=== PATIENT | female | born 1985 | race Caucasian/White ===

== ENCOUNTER 2017-06-01 15:51 | Emergency (ER) | payer OTHER ==
[~2017-06-01] VITALS: Ht 157.5 cm; Wt 65.6 kg
[~2017-06-01 15:51] MED LIST: BUPR100T8 PO; BUPR200T2 PO; CHOL1000 PO; CLON1TAB3 PO; FLUO20CA35 PO; OXYC7.5T78 PO; PANT40TA PO; TOPI50TA24 PO; VERA240T20 PO
[2017-06-01 15:57] VITALS: TEMP 36.8; Ht 157.5 cm; Wt 65.6 kg
[2017-06-01] MEDS ORDERED: SODIUM CHLORIDE 0.9% 1000ML 1,000 ML IV STA (16:03)
[2017-06-01] MEDS ORDERED: SODIUM CHLORIDE 0.9% 500ML 500 ML IV STA (16:03)
[2017-06-01] MEDS ORDERED: OPTIRAY 320 IV PRN (16:15)
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
[2017-06-01] MEDS ORDERED: ONDANSETRON INJ 2 MG/ML 2 ML VIAL IV STA (16:41)
[2017-06-01] MEDS: MoRPHine SULFATE 4 MG/ML 1 ML CARP\\VIAL IV PRN ×2 (16:45→17:02)
[2017-06-01 17:07] LABS: HEMATOCRIT 38.6 % (37-47); MEAN CELL VOLUME 88.7 fL (80-100); MEAN PLATELET VOLUME 9.3 fL (7.4-10.4); PLATELET COUNT 219 K/uL (130-400); RED BLOOD COUNT 4.35 M/uL (4.2-5.4); WHITE BLOOD COUNT 7.75 K/uL (4.8-10.8)
[2017-06-01] MEDS ORDERED: VORT1TAB3 PO (17:16)
[2017-06-01 17:50] LABS: BLOOD UREA NITROGEN 13 mg/dl (7-18); BUN/CREATININE RATIO 11.6 (10-20); CALCIUM 8.9 mg/dl (8.5-10.1); CARBON DIOXIDE 24 mmol/L (21-32); CHLORIDE 112 mmol/L (98-107); GLUCOSE 74 mg/dl (70-99); SODIUM 140 mmol/L (136-145)
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
[2017-06-01 19:46] VITALS: BP 127/88; PULSE 74; O2SAT 97
== END 2017-06-01 19:48 | disposition home or self-care (01) ==
LOC: EDBD 15:51 → C.EDB 15:52
DX: R10.9 Unspecified abdominal pain (principal); S40.012A Contusion of left shoulder, initial encounter; S16.1XXA Strain of muscle, fascia and tendon at neck level, initial encounter; V49.40XA Driver injured in collision with unspecified motor vehicles in traffic accident, initial encounter; F31.5 Bipolar disorder, current episode depressed, severe, with psychotic features; F42.9 Obsessive-compulsive disorder, unspecified; F43.10 Post-traumatic stress disorder, unspecified; Z83.3 Family history of diabetes mellitus; Z82.49 Family history of ischemic heart disease and other diseases of the circulatory system

== ENCOUNTER → 2017-06-24 | Outpatient (CLI) | payer OTHER ==
[~2017-06-24] MED LIST changes: -BUPR100T8 PO; -BUPR200T2 PO; -CHOL1000 PO; +CIPR-255 PO; +KETO30IN5 INJ; +ONDA4TAB10 SL; -OXYC7.5T78 PO; +PHEN-876 PO; +PRAZ1CAP10 PO; +VORT1TAB3 PO
== END | disposition home or self-care (01) ==
LOC: C.PAPS 16:57
PROVIDERS: ATTEND Physician Assistant
DX: Z01.419 Encounter for gynecological examination (general) (routine) without abnormal findings (principal)

== ENCOUNTER → 2017-08-07 | Outpatient (CLI) | payer OTHER | END | disposition home or self-care (01) | LOC: C.LABPVFM 12:44 | PROVIDERS: ATTEND Nurse Practitioner Family | DX: N39.0 Urinary tract infection, site not specified (principal) ==

== ENCOUNTER 2017-08-08 20:09 | Emergency (ER) | payer OTHER ==
[~2017-08-08] VITALS: Ht 154.9 cm; Wt 64.2 kg
[~2017-08-08 20:09] MED LIST changes: -CIPR-255 PO; -KETO30IN5 INJ; -ONDA4TAB10 SL; -PHEN-876 PO; -PRAZ1CAP10 PO
[2017-08-08 20:14] VITALS: TEMP 37; Ht 154.9 cm; Wt 64.2 kg
[2017-08-08] MEDS ORDERED: PRAZ1CAP10 PO (20:28)
[2017-08-08] MEDS ORDERED: PHEN-876 PO (20:28)
[2017-08-08] MEDS ORDERED: KETO30IN5 INJ (20:28)
[2017-08-08] MEDS ORDERED: CIPR-255 PO (20:28)
[2017-08-08] MEDS ORDERED: ONDANSETRON INJ 2 MG/ML 2 ML VIAL IV STA (20:55)
[2017-08-08] MEDS ORDERED: KETOROLAC TROMETHAMINE 30 MG/ML VIAL IV STA (20:55)
[2017-08-08] MEDS ORDERED: SODIUM CHLORIDE 0.9% 1000ML 1,000 ML IV STA (20:55)
[2017-08-08 21:18] LABS: BASO % 0.3 %; BASO ABS # 0.02 K/uL (0-0.2); COMPLETE YES; EOS % 0.5 %; HEMATOCRIT 39.6 % (37-47); LYMPH % 19.5 %; LYMPH ABS # 1.51 K/uL (1.2-3.4); MEAN CORPUSCULAR HEMOGLOBIN 30.1 pg (25-34); MEAN CORPUSCULAR HGB CONC 33.8 g/dl (32-36); MEAN PLATELET VOLUME 9.2 fL (7.4-10.4); MONO % 6.4 %; NEUT % 73.3 %; PLATELET COUNT 275 K/uL (130-400); RED BLOOD COUNT 4.45 M/uL (4.2-5.4); WHITE BLOOD COUNT 7.76 K/uL (4.8-10.8)
[2017-08-08 21:35] LABS: CREATININE 1.1 mg/dl (0.60-1.20); POTASSIUM 3.2 mmol/L (3.5-5.1)
[2017-08-08 21:38] LABS: ALB/GLOB RATIO 1.3 (0.9-2)
[2017-08-08 21:55] LABS: MANUAL MICROSCOPIC REQUIRED? YES; REVIEW REQ? NO; SULFASALICYLIC ACID NEG (NEG); URINE APPEARANCE CLEAR (CLEAR); URINE COLOR ORANGE; URINE SPECIFIC GRAVITY 1.015 (1.000-1.030)
--- NOTE | 2017-08-08 21:56 | DIAGNOSTIC IMAGING REPORT ---
CT SCAN OF THE ABDOMEN AND PELVIS WITHOUT CONTRAST CLINICAL HISTORY: Bilateral flank pain. History of kidney stones. COMPARISON STUDY: 06/01/2017 TECHNIQUE: CT scan of the abdomen and pelvis was performed from the lung bases to the proximal femurs. Images are reviewed in the axial, sagittal, and coronal planes. IV contrast was not administered for this examination. A dose lowering technique was utilized adhering to the principles of ALARA. CT DOSE: 488.00 mGy.cm FINDINGS: Lower chest: There are minor basilar atelectatic changes. Liver: The unenhanced liver is normal in size, contour, and attenuation. There is no intrahepatic biliary ductal dilatation. Gallbladder: Unremarkable. Spleen: Normal in size and attenuation. Pancreas: Unremarkable. Adrenal glands: Unremarkable. Kidneys: There are multiple bilateral nonobstructing renal calculi. There is no significant hydronephrosis. No ureteral or bladder calculi are visualized. Multiple pelvic basin calcifications, likely represent phleboliths given the lack of or proximal ureteral dilatation. Bowel: There are no transition zones indicate bowel obstruction. There is mild fecal retention. Correlation with constipation is recommended. There is no acute diverticulitis. There are no findings to indicate acute appendicitis. Peritoneum: There is trace free pelvic fluid likely physiologic. No free intraperitoneal air is visualized. Vasculature: The abdominal aorta is normal in course and caliber. Adenopathy: None. Pelvic viscera: There is an indwelling IUD. Skeletal structures: No destructive osseous lesions are seen. IMPRESSION: 1. Bilateral nephrolithiasis. No hydronephrosis. No ureteral calculi identified. 2. No evidence of bowel obstruction. No evidence of free air 3. No evidence of acute diverticulitis. No evidence of acute appendicitis. 4. Fecal retention. Correlate with symptoms of constipation. Electronically signed by: Maninder Muhammad M.D. 08/08/2017 9:55 PM Dictated Date/Time: 08/08/2017 9:50 PM
[2017-08-08 21:59] LABS: URINE BACTERIA NEG (NEG); URINE RBC 0-4 /hpf (0-4); ZZUR CULT IF INDIC CLEAN CATCH NO
[2017-08-08 22:12] VITALS: PULSE 90; O2SAT 96
[2017-08-08] MEDS ORDERED: ONDA4TAB10 SL (22:13)
--- NOTE | 2017-08-08 22:14 | EMERGENCY ROOM VISIT NOTE ---
History First contact with patient: 20:41 Chief Complaint: DIZZY Stated Complaint: POSSIBLE KIDNEY INFECTION,DIZZY,VOMITTING History of Present Illness The patient is a 32 year old female who presents to the Emergency Room with complaints of a possible kidney infection. The patient states that she had symptoms of a UTI for the past 2 weeks. She was seen at her primary care provider's office yesterday and diagnosed with a UTI. She is currently being treated with ciprofloxacin. She states that she has had pain in both sides of her back which radiates into the abdomen. She has had intermittent vomiting and has had difficulty tolerating anything by mouth. She has a history of kidney stones and is unsure if this feels similar. She states that she has had chills and feels feverish, but has not taken her temperature. She rates her overall discomfort an 8/10. Changes in bowel movements, chest pain or shortness of breath. Review of Systems A complete 10 point review of systems was reviewed with the patient with pertinent positives and negatives as per history of present illness. All else were negative. Past Medical/Surgical History Medical Problems: (1) Conversion disorder (2) Major depressive disorder, recurrent severe without psychotic features (3) Migraine (4) Migraines (5) Obsessive compulsive disorder (6) Panic disorder without agoraphobia (7) Posttraumatic stress disorder Family History Cancer Diabetes mellitus FHx: gallbladder disease Heart disease Hypertension Kidney disease Kidney stones Social History Smoking Status: Former Smoker Alcohol Use: none Drug Use: none Marital Status: Housing Status: lives with family Occupation Status: employed Current/Historical Medications Scheduled Ciprofloxacin Hcl (Cipro), 500 MG PO BID Clonazepam (Klonopin), 1 MG PO BID Ondasetron Odt (Zofran Odt), 4 MG SL Q6H Pantoprazole (Protonix), 40 MG PO DAILY Phenazopyridine HCl (Pyridium), 200 MG PO TID Prazosin Hcl (Prazosin), 4 MG PO HS Topiramate (Topamax), 200 MG PO BID Verapamil Sust Rel (Calan Sr Ext Rel), 240 MG PO HS Vortioxetine HBr (Trintellix), 1 TAB PO DAILY Scheduled PRN Ketorolac Tromethamine (Ketorolac Tromethamine), 30 MG INJ WK PRN for Headache Allergies Coded Allergies: Lamotrigine (Verified Allergy, Severe, ANAPHYLAXIS, 08/08/17) POLLEN (Verified Allergy, Intermediate, ITCHY EYES, RUNNY NOSE, SNEEZING. , 08/08/17) Penicillins (Verified Allergy, Unknown, HIVES, 08/08/17) Codeine (Verified Adverse Reaction, Intermediate, SEVERE NAUSEA & VOMITING , 08/08/17) Physical Exam Vital Signs Date Time Temp Pulse Resp B/P (MAP) Pulse Ox O2 Delivery O2 Flow Rate FiO2 08/08/17 22:17 114/78 08/08/17 22:12 90 20 122/82 96 Room Air 08/08/17 22:09 88 17 99 08/08/17 21:44 122/82 08/08/17 21:12 90 20 107/75 99 Room Air 08/08/17 21:09 95 13 100 08/08/17 21:06 107/75 08/08/17 21:05 90 08/08/17 20:14 37.0 116 18 124/88 95 Room Air Physical Exam VITALS: Vitals are noted on the nurse's note and reviewed by myself. Vital signs stable. GENERAL: This is a 32-year-old female, in no acute distress, nondiaphoretic, well-developed well-nourished. SKIN: Capillary reflex less than 2 seconds. HEENT: Normocephalic. PERRLA. EOMI. Mucous membranes moist. Neck is supple without nuchal rigidity. HEART: Regular rate and rhythm without murmurs gallops or rubs. LUNGS: Clear to auscultation bilaterally without wheezes, rales or rhonchi. ABDOMEN: Positive bowel sounds x 4. Mild tenderness to palpation across the lower abdomen. Bilateral CVA tenderness. NEURO: Patient was alert and oriented to person place and time. Medical Decision & Procedures ER Provider Diagnostic Interpretation: CT SCAN OF THE ABDOMEN AND PELVIS WITHOUT CONTRAST CLINICAL HISTORY: Bilateral flank pain. History of kidney stones. COMPARISON STUDY: 06/01/2017 TECHNIQUE: CT scan of the abdomen and pelvis was performed from the lung bases to the proximal femurs. Images are reviewed in the axial, sagittal, and coronal planes. IV contrast was not administered for this examination. A dose lowering technique was utilized adhering to the principles of ALARA. CT DOSE: 488.00 mGy.cm FINDINGS: Lower chest: There are minor basilar atelectatic changes. Liver: The unenhanced liver is normal in size, contour, and attenuation. There is no intrahepatic biliary ductal dilatation. Gallbladder: Unremarkable. Spleen: Normal in size and attenuation. Pancreas: Unremarkable. Adrenal glands: Unremarkable. Kidneys: There are multiple bilateral nonobstructing renal calculi. There is no significant hydronephrosis. No ureteral or bladder calculi are visualized. Multiple pelvic basin calcifications, likely represent phleboliths given the lack of or proximal ureteral dilatation. Bowel: There are no transition zones indicate bowel obstruction. There is mild fecal retention. Correlation with constipation is recommended. There is no acute diverticulitis. There are no findings to indicate acute appendicitis. Peritoneum: There is trace free pelvic fluid likely physiologic. No free intraperitoneal air is visualized. Vasculature: The abdominal aorta is normal in course and caliber. Adenopathy: None. Pelvic viscera: There is an indwelling IUD. Skeletal structures: No destructive osseous lesions are seen. IMPRESSION: 1. Bilateral nephrolithiasis. No hydronephrosis. No ureteral calculi identified. 2. No evidence of bowel obstruction. No evidence of free air 3. No evidence of acute diverticulitis. No evidence of acute appendicitis. 4. Fecal retention. Correlate with symptoms of constipation. Laboratory Results 08/08/17 21:05 Red Blood Count 4.45, Mean Corpuscular Volume 89.0, Mean Corpuscular Hemoglobin 30.1, Mean Corpuscular Hemoglobin Concent 33.8, Mean Platelet Volume 9.2, Neutrophils (%) (Auto) 73.3, Lymphocytes (%) (Auto) 19.5, Monocytes (%) (Auto) 6.4, Eosinophils (%) (Auto) 0.5, Basophils (%) (Auto) 0.3, Neutrophils # (Auto) 5.69, Lymphocytes # (Auto) 1.51, Monocytes # (Auto) 0.50, Eosinophils # (Auto) 0.04, Basophils # (Auto) 0.02 08/08/17 21:05 Test 08/08/17 21:00 08/08/17 21:05 Urine Color ORANGE Urine Appearance CLEAR (CLEAR) Urine pH (4.5-7.5) Urine Specific [place] 1.015 (1.000-1.030) Urine Protein (NEG) Urine Glucose (UA) (NEG) Urine Ketones (NEG) Urine Occult Blood (NEG) Urine Nitrite (NEG) Urine Bilirubin (NEG) Urine Urobilinogen (NEG) Urine Leukocyte Esterase (NEG) Urine RBC 0-4 /hpf (0-4) Urine WBC 5-10 /hpf (0-5) Urine Epithelial Cells >30 /lpf (0-5) Urine Bacteria NEG (NEG) Urine Test NEG (NEG) White Blood Count 7.76 K/uL (4.8-10.8) Red Blood Count 4.45 M/uL (4.2-5.4) Hemoglobin 13.4 g/dL (12.0-16.0) Hematocrit 39.6 % (37-47) Mean Corpuscular Volume 89.0 fL (80-100) Mean Corpuscular Hemoglobin 30.1 pg (25-34) Mean Corpuscular Hemoglobin Concent 33.8 g/dl (32-36) Platelet Count 275 K/uL (130-400) Mean Platelet Volume 9.2 fL (7.4-10.4) Neutrophils (%) (Auto) 73.3 % Lymphocytes (%) (Auto) 19.5 % Monocytes (%) (Auto) 6.4 % Eosinophils (%) (Auto) 0.5 % Basophils (%) (Auto) 0.3 % Neutrophils # (Auto) 5.69 K/uL (1.4-6.5) Lymphocytes # (Auto) 1.51 K/uL (1.2-3.4) Monocytes # (Auto) 0.50 K/uL (0.11-0.59) Eosinophils # (Auto) 0.04 K/uL (0-0.5) Basophils # (Auto) 0.02 K/uL (0-0.2) RDW Standard Deviation 39.6 fL (36.4-46.3) RDW Coefficient of Variation 12.3 % (11.5-14.5) Immature Granulocyte % (Auto) 0.0 % Immature Granulocyte # (Auto) 0.00 K/uL (0.00-0.02) Anion Gap 7.0 mmol/L (3-11) Est Creatinine Clear Calc Drug Dose 62.4 ml/min Estimated GFR () 76.4 Estimated GFR (Non- 65.9 BUN/Creatinine Ratio 12.0 (10-20) Calcium Level 9.0 mg/dl (8.5-10.1) Total Bilirubin 0.4 mg/dl (0.2-1) Aspartate Amino Transf (AST/SGOT) 12 U/L (15-37) Alanine Aminotransferase (ALT/SGPT) 12 U/L (12-78) Alkaline Phosphatase 62 U/L (45-117) Total Protein 6.9 gm/dl (6.4-8.2) Albumin 3.9 gm/dl (3.4-5.0) Globulin 2.9 gm/dl (2.5-4.0) Albumin/Globulin Ratio 1.3 (0.9-2) Lipase 176 U/L (73-393) Medications Administered Medications (Trade) Dose Ordered Sig/Matilde Route Start Time Stop Time Status Last Admin Dose Admin Sodium Chloride 1,000 ml @ 999 mls/hr Q1H1M STAT IV 08/08/17 20:55 08/08/17 21:55 DC 08/08/17 21:10 999 MLS/HR Ondansetron HCl (Zofran Inj) 4 mg NOW STAT IV 08/08/17 20:55 08/08/17 20:56 DC 08/08/17 21:37 4 MG Ketorolac Tromethamine (Toradol Inj) 30 mg NOW STAT IV 08/08/17 20:55 08/08/17 20:56 DC 08/08/17 21:37 30 MG Ondansetron HCl (ZOFRAN ODT 4MG Home Pack) 1 homepack UD ONCE PO 08/08/17 22:15 08/08/17 22:16 DC 08/08/17 22:23 1 HOMEPACK ED Course The patient was evaluated as above. Labs were drawn and IV access was obtained. Patient was medicated with Toradol, Zofran and 1 L normal saline solution. CT was performed and read by radiology as above. Patient was reevaluated and stated she felt much better. Findings were discussed with the patient. Discharge instructions were reviewed with the patient. The patient verbalized understanding of my assessment and treatment plan and was discharged home in good condition. Medical Decision Differential diagnosis includes UTI, pyelonephritis, kidney stone, colitis, gastroenteritis, bowel obstruction, among others. The patient is a 32-year-old female who presents today complaining of abdominal discomfort patient is currently being treated for a urinary tract infection. Labs revealed no leukocytosis, anemia or concerning electrolyte abnormalities. Urinalysis was not suggestive of infection or worsening infection. CT of the abdomen and pelvis was performed to rule out kidney stone and was negative. Urine was negative. Patient felt better after the above treatment. She was encouraged to continue the ciprofloxacin. CT did show some constipation and patient was encouraged to use MiraLAX for this. She was given a prescription of Zofran. She will follow-up with her primary care provider for further evaluation. Based on the patient's presentation and work up, I feel the patient is stable for outpatient treatment. The patient was educated to return to the emergency department for any worsening of their current condition or new/concerning symptoms. She will follow up with her PCP. Impression Primary Impression: Abdominal pain Departure Information Dispostion Home / Self-Care Condition GOOD Prescriptions Ondasetron Odt (ZOFRAN ODT) 4 Mg Tab 4 MG SL Q6H for Nausea, #15 TAB Prov: Kristi Salter ., FLYNN 08/08/17 Referrals Bita Loera C.R.N.P (PCP) Patient Instructions My [facility] Additional Instructions You have been prescribed Zofran to be used for any nausea or vomiting. Take as prescribed. For pain control, you can use the following [id number] medicines (if >12 yo): - Regular strength (325mg/tab) Tylenol (acetaminophen) 2 tabs every 4-6 hours as needed. Do not exceed 12 tablets in a 24 hour period. Avoid taking more than 4 grams (4000 mg) of Tylenol per day. This includes any other sources of acetaminophen you may take on a regular basis. - Regular strength (200 mg/tab) Advil (ibuprofen) 1-2 tabs every 4-6 hours as needed. Do not exceed a dose of 3200 mg per day. Continue the ciprofloxacin as prescribed. Follow-up with your primary care provider next week for a recheck. Rest and stay well hydrated. MiraLAX as directed [id number] for constipation. Return to the emergency department for any new/concerning or worsening symptoms. Problem Qualifiers Primary Impression: Abdominal pain Abdominal location: generalized Qualified Codes: R10.84 - Generalized abdominal pain
[2017-08-08] MEDS ORDERED: ONDANSETRON HOME PACK 4MG OD TAB PO ONE (22:15)
[2017-08-08 22:17] VITALS: BP 114/78
== END 2017-08-08 22:35 | disposition home or self-care (01) ==
LOC: C.EDB 20:13 → C.EDA 22:35
DX: R10.84 Generalized abdominal pain (principal); K59.00 Constipation, unspecified; R11.10 Vomiting, unspecified; N39.0 Urinary tract infection, site not specified; F33.2 Major depressive disorder, recurrent severe without psychotic features; F42.8 Other obsessive-compulsive disorder; F41.0 Panic disorder [episodic paroxysmal anxiety]; F43.10 Post-traumatic stress disorder, unspecified; Z87.891 Personal history of nicotine dependence; Z87.442 Personal history of urinary calculi; Z83.3 Family history of diabetes mellitus; Z82.49 Family history of ischemic heart disease and other diseases of the circulatory system; Z84.1 Family history of disorders of kidney and ureter

== ENCOUNTER → 2017-10-16 | Outpatient (CLI) | payer OTHER ==
[~2017-10-16] MED LIST changes: +CIPR-255 PO; -FLUO20CA35 PO; +KETO30IN5 INJ; +ONDA4TAB10 SL; +PHEN-876 PO; +PRAZ1CAP10 PO
== END | disposition home or self-care (01) ==
LOC: C.LABPVFM 09:50
PROVIDERS: ATTEND Nurse Practitioner Family
DX: R39.9 Unspecified symptoms and signs involving the genitourinary system (principal)

== ENCOUNTER 2018-01-02 15:02 | Emergency (ER) | payer OTHER ==
[~2018-01-02] VITALS: Ht 157.5 cm; Wt 58.1 kg
[~2018-01-02 15:02] MED LIST changes: -POTA20TA16 PO; -PRLSR20 PO; -RANI150T85 PO
[2018-01-02 15:08] VITALS: Ht 157.5 cm; Wt 58.1 kg
[2018-01-02] MEDS ORDERED: LORAZEPAM 2 MG/ML 1 ML VIAL IV STA (15:39)
[2018-01-02] MEDS ORDERED: KETOROLAC TROMETHAMINE 30 MG/ML VIAL IV STA (15:39)
[2018-01-02] MEDS ORDERED: SODIUM CHLORIDE 0.9% 1000ML 1,000 ML IV STA (15:39)
[2018-01-02] MEDS ORDERED: DiphenhydrAMINE HCL 50 MG/ML VIAL IV STA (15:39)
[2018-01-02] MEDS ORDERED: PROCHLORPERAZINE 5 MG/ML 2 ML VIAL IV STA (15:39)
[2018-01-02] MEDS ORDERED: PANTOprazole INJ 40 MG in SYRINGE 0 ML IV ONE (16:00)
[2018-01-02 16:49] LABS: BASO % 0.3 %; BASO ABS # 0.02 K/uL (0-0.2); EOS % 0.3 %; EOS ABS # 0.02 K/uL (0-0.5); HEMATOCRIT 39.8 % (37-47); HEMOGLOBIN 13.8 g/dL (12.0-16.0); IG# 0.01 K/uL (0.00-0.02); LYMPH % 22.4 %; LYMPH ABS # 1.32 K/uL (1.2-3.4); MEAN CELL VOLUME 88.8 fL (80-100); MEAN CORPUSCULAR HEMOGLOBIN 30.8 pg (25-34); MEAN CORPUSCULAR HGB CONC 34.7 g/dl (32-36); MEAN PLATELET VOLUME 10.1 fL (7.4-10.4); MONO ABS # 0.41 K/uL (0.11-0.59); NEUT % 69.8 %; NEUT ABS # 4.11 K/uL (1.4-6.5); PLATELET COUNT 224 K/uL (130-400); RED CELL DISTRIBUTION WIDTH CV 12.9 % (11.5-14.5); RED CELL DISTRIBUTION WIDTH SD 41.8 fL (36.4-46.3); WHITE BLOOD COUNT 5.89 K/uL (4.8-10.8)
[2018-01-02 17:14] LABS: ALBUMIN 4.1 gm/dl (3.4-5.0); ALT/SGPT 14 U/L (12-78); BLOOD UREA NITROGEN 11 mg/dl (7-18); CALCIUM 9.3 mg/dl (8.5-10.1); CARBON DIOXIDE 21 mmol/L (21-32); GLUCOSE 75 mg/dl (70-99); LIPASE 113 U/L (73-393); POTASSIUM 2.7 mmol/L (3.5-5.1); SODIUM 140 mmol/L (136-145)
[2018-01-02 17:17] LABS: ALKALINE PHOSPHATASE 57 U/L (45-117); AST/SGOT 7 U/L (15-37); TOTAL PROTEIN 6.8 gm/dl (6.4-8.2)
--- NOTE | 2018-01-02 17:29 | EMERGENCY ROOM VISIT NOTE ---
History First contact with patient: 15:28 Chief Complaint: ILLNESS Stated Complaint: SEVERE HEADACHE, NAUSEA, ABDOMINAL PAIN, CHILLS History of Present Illness The patient is a 32 year old female who presents to the Emergency Room with complaints of frontal headache which she has had for 1 week. She states it is across the forehead. The patient states it hurts to move her eyes. The patient denies any other visual changes or dizziness. The patient also admits to nausea and vomiting which has been going on for 2 weeks. She also admits to diarrhea over the last week. She admits to epigastric pain. The patient denies any urinary symptoms of frequency, urgency or dysuria. The patient was just at her family doctor today for all her symptoms. She was placed on Prilosec 40 mg daily they also switched her Klonopin to clonazepam. They did some laboratory studies and are setting her up for an endoscopy. The patient is already scheduled by neurology in [place] for her migraine headaches. She had muscle tissue removed that was wrapped around her occipital lobe. She also gets Botox injections every month for her headaches. She is on Topamax and verapamil for her headaches. She also gives herself Kenalog 30 mg injections every week if on a as needed basis for her headaches. She states she is out of the ketorolac. The patient states she is mainly here for her headache. But would like something for her stomach. Review of Systems 10 system review was performed and was negative unless stated otherwise history of present illness. Past Medical/Surgical History Medical Problems: (1) Conversion disorder (2) Major depressive disorder, recurrent severe without psychotic features (3) Migraine (4) Migraines (5) Obsessive compulsive disorder (6) Panic disorder without agoraphobia (7) Posttraumatic stress disorder Family History Cancer Diabetes mellitus FHx: gallbladder disease Heart disease Hypertension Kidney disease Kidney stones Social History Smoking Status: Former Smoker Alcohol Use: none Drug Use: none Marital Status: Housing Status: lives with family Occupation Status: employed Current/Historical Medications Scheduled Clonazepam (Klonopin), 1 MG PO BID Ondasetron Odt (Zofran Odt), 4 MG SL Q6H Pantoprazole (Protonix), 40 MG PO DAILY Prazosin Hcl (Prazosin), 4 MG PO HS Topiramate (Topamax), 200 MG PO BID Verapamil Sust Rel (Calan Sr Ext Rel), 240 MG PO HS Vortioxetine HBr (Trintellix), 20 MG PO DAILY Scheduled PRN Ketorolac Tromethamine (Ketorolac Tromethamine), 30 MG INJ WK PRN for Headache Physical Exam Vital Signs Date Time Temp Pulse Resp B/P (MAP) Pulse Ox O2 Delivery O2 Flow Rate FiO2 01/02/18 16:51 62 16 118/77 100 Room Air 01/02/18 16:29 65 16 133/90 100 Room Air 01/02/18 16:27 73 01/02/18 15:08 36.6 81 17 126/90 99 Physical Exam GENERAL: 32-year-old female appears in no acute distress. MENTAL Status: Alert and oriented 3. EYES: PERRLA. EOMs intact. EARS: Canals clear. TMs without fluid level noted. EYES: PERRLA, EOMs intact. FACE: The patient is tender to percussion over the frontal sinuses. Maxillary nontender. NECK: Supple, no lymphadenopathy noted. No carotid bruits noted. LUNGS: Clear auscultation without wheezes rales or rhonchi. CARDIAC: Regular rate and rhythm without murmur. Pulses is full and equal throughout. ABDOMEN: Positive bowel sounds all 4 quadrants. Soft, tender to palpation in the epigastric region otherwise nontender to palpation without organomegaly or masses. NEURO:Cranial nerves two through 12 intact. Cerebellar function intact with [id number]. Fine motor intact with alternating finger motions. Medical Decision & Procedures Laboratory Results 01/02/18 16:18 Red Blood Count 4.48, Mean Corpuscular Volume 88.8, Mean Corpuscular Hemoglobin 30.8, Mean Corpuscular Hemoglobin Concent 34.7, Mean Platelet Volume 10.1, Neutrophils (%) (Auto) 69.8, Lymphocytes (%) (Auto) 22.4, Monocytes (%) (Auto) 7.0, Eosinophils (%) (Auto) 0.3, Basophils (%) (Auto) 0.3, Neutrophils # (Auto) 4.11, Lymphocytes # (Auto) 1.32, Monocytes # (Auto) 0.41, Eosinophils # (Auto) 0.02, Basophils # (Auto) 0.02 01/02/18 16:18 Test 01/02/18 16:18 01/02/18 16:31 White Blood Count 5.89 K/uL (4.8-10.8) Red Blood Count 4.48 M/uL (4.2-5.4) Hemoglobin 13.8 g/dL (12.0-16.0) Hematocrit 39.8 % (37-47) Mean Corpuscular Volume 88.8 fL (80-100) Mean Corpuscular Hemoglobin 30.8 pg (25-34) Mean Corpuscular Hemoglobin Concent 34.7 g/dl (32-36) Platelet Count 224 K/uL (130-400) Mean Platelet Volume 10.1 fL (7.4-10.4) Neutrophils (%) (Auto) 69.8 % Lymphocytes (%) (Auto) 22.4 % Monocytes (%) (Auto) 7.0 % Eosinophils (%) (Auto) 0.3 % Basophils (%) (Auto) 0.3 % Neutrophils # (Auto) 4.11 K/uL (1.4-6.5) Lymphocytes # (Auto) 1.32 K/uL (1.2-3.4) Monocytes # (Auto) 0.41 K/uL (0.11-0.59) Eosinophils # (Auto) 0.02 K/uL (0-0.5) Basophils # (Auto) 0.02 K/uL (0-0.2) RDW Standard Deviation 41.8 fL (36.4-46.3) RDW Coefficient of Variation 12.9 % (11.5-14.5) Immature Granulocyte % (Auto) 0.2 % Immature Granulocyte # (Auto) 0.01 K/uL (0.00-0.02) Anion Gap 9.0 mmol/L (3-11) Est Creatinine Clear Calc Drug Dose 48.7 ml/min Estimated GFR () 62.4 Estimated GFR (Non- 53.9 BUN/Creatinine Ratio 8.2 (10-20) Calcium Level 9.3 mg/dl (8.5-10.1) Total Bilirubin 0.3 mg/dl (0.2-1) Direct Bilirubin < 0.1 mg/dl (0-0.2) Aspartate Amino Transf (AST/SGOT) 7 U/L (15-37) Alanine Aminotransferase (ALT/SGPT) 14 U/L (12-78) Alkaline Phosphatase 57 U/L (45-117) Total Protein 6.8 gm/dl (6.4-8.2) Albumin 4.1 gm/dl (3.4-5.0) Lipase 113 U/L (73-393) Urine Color YELLOW Urine Appearance TURBID (CLEAR) Urine pH 8.0 (4.5-7.5) Urine Specific [place] 1.016 (1.000-1.030) Urine Protein NEG (NEG) Urine Glucose (UA) NEG (NEG) Urine Ketones TRACE (NEG) Urine Occult Blood NEG (NEG) Urine Nitrite NEG (NEG) Urine Bilirubin NEG (NEG) Urine Urobilinogen NEG (NEG) Urine Leukocyte Esterase NEG (NEG) Urine WBC (Auto) 1-5 /hpf (0-5) Urine RBC (Auto) 0-4 /hpf (0-4) Urine Hyaline Casts (Auto) 1-5 /lpf (0-5) Urine Epithelial Cells (Auto) >30 /lpf (0-5) Urine Bacteria (Auto) 1+ (NEG) Medications Administered Medications (Trade) Dose Ordered Sig/Matilde Route Start Time Stop Time Status Last Admin Dose Admin Sodium Chloride 1,000 ml @ 999 mls/hr Q1H1M STAT IV 01/02/18 15:39 01/02/18 16:39 DC 01/02/18 16:04 999 MLS/HR Lorazepam (Ativan Inj) 1 mg NOW STAT IV 01/02/18 15:39 01/02/18 15:42 DC 01/02/18 16:08 1 MG Ketorolac Tromethamine (Toradol Inj) 30 mg NOW STAT IV 01/02/18 15:39 01/02/18 15:42 DC 01/02/18 16:04 30 MG Diphenhydramine HCl (Benadryl Inj) 50 mg NOW STAT IV 01/02/18 15:39 01/02/18 15:42 DC 01/02/18 16:04 50 MG Prochlorperazine Edisylate (Compazine Inj) 10 mg NOW STAT IV 01/02/18 15:39 01/02/18 15:42 DC 01/02/18 16:08 10 MG Pantoprazole Sodium 40 mg/ Syringe 10 ml @ 5 mls/min NOW ONCE IV 01/02/18 16:00 01/02/18 16:01 DC 01/02/18 16:05 5 MLS/MIN ED Course The patient was evaluated. The patient's EMR medication list were reviewed. IV access was obtained. The patient was given 1 L normal saline wide open. The patient was given Ativan 1 mg IV, Toradol 30 mg IV, Compazine 10 mg IV, Benadryl 50 mg IV, Protonix 40 mg IV push. CBC and differential, renal profile , LFTs and lipase levels were ordered. Urinalysis was ordered. Labs are reviewed. White count was normal. The patient's creatinine was slightly elevated at 1.2. Remainder labs are unremarkable. Urinalysis revealed some bacteria but also had a lot of epithelial cells. Culture is pending. The patient was reevaluated and was feeling much better. The patient was discharged home in stable condition. Medical Decision Differential diagnosis include migraine headache, acute sinusitis, intracranial bleed. Due to the patient's history of migraine headaches I felt that this was most likely a migraine and responded well to the medications. She follows closely with neurology in [place] for her migraines. The patient is already under the care of her family physician for her epigastric pain and gastritis. She did respond well to the Protonix therefore I instructed the patient to make sure she gets her prescription for Prilosec 40 mg filled as soon as possible and take that daily. She is also to make sure she get scheduled for her endoscopy. [place] Drug Monitoring Program Search Results: patient reviewed within database Medication Reconcilliation Current Medication List: was personally reviewed by me Blood Pressure Screening Patient's blood pressure: Normal blood pressure Impression Primary Impression: Migraine Additional Impression: Epigastric pain Departure Information Dispostion Home / Self-Care Condition GOOD Referrals Bita Loera, C.R.N.P (PCP) Forms HOME CARE DOCUMENTATION FORM, IMPORTANT VISIT INFORMATION, WORK / SCHOOL INSTRUCTIONS Patient Instructions ED Headache Migraine, My [facility] Additional Instructions Recommend follow-up with your neurologist for a prescription for ketorolac. Follow-up with your family physician as previously scheduled. Make sure you are taking the medications prescribed by your family physician, i.e. Prilosec 40 mg. If symptoms should worsen, return to ER. Problem Qualifiers Primary Impression: Migraine Migraine type: unspecified Status migrainosus presence: without status migrainosus Intractability: not intractable Qualified Codes: G43.909 - Migraine, unspecified, not intractable, without status migrainosus
[2018-01-02 17:32] VITALS: BP 118/77; PULSE 63; TEMP 36.6; O2SAT 99
[2018-01-03] MEDS ORDERED: PRLSR20 PO (15:20)
[2018-01-03] MEDS ORDERED: ZNTT/150 PO (15:20)
[2018-01-03] MEDS ORDERED: POTA20TA16 PO (15:20)
[2018-01-03] MEDS ORDERED: ONDA4TAB10 SL (15:21)
== END 2018-01-02 17:41 | disposition home or self-care (01) ==
LOC: C.EDB 15:04 → C.EDA 17:41
DX: G43.909 Migraine, unspecified, not intractable, without status migrainosus (principal); R10.13 Epigastric pain; F33.2 Major depressive disorder, recurrent severe without psychotic features; F42.8 Other obsessive-compulsive disorder; F41.0 Panic disorder [episodic paroxysmal anxiety]; F43.10 Post-traumatic stress disorder, unspecified; Z79.899 Other long term (current) drug therapy; Z87.891 Personal history of nicotine dependence

== ENCOUNTER → 2018-01-02 | Outpatient (CLI) | payer OTHER ==
[~2018-01-02] MED LIST changes: +POTA20TA16 PO; +PRLSR20 PO; +RANI150T85 PO
[2018-01-02 17:41] LABS: BASO % 0.3 %; BASO ABS # 0.02 K/uL (0-0.2); EOS % 0.4 %; EOS ABS # 0.03 K/uL (0-0.5); HEMATOCRIT 42.3 % (37-47); HEMOGLOBIN 14.5 g/dL (12.0-16.0); IG# 0.01 K/uL (0.00-0.02); LYMPH % 20.9 %; LYMPH ABS # 1.47 K/uL (1.2-3.4); MEAN CELL VOLUME 89.6 fL (80-100); MEAN CORPUSCULAR HEMOGLOBIN 30.7 pg (25-34); MEAN CORPUSCULAR HGB CONC 34.3 g/dl (32-36); MEAN PLATELET VOLUME 10.7 fL (7.4-10.4); MONO ABS # 0.49 K/uL (0.11-0.59); NEUT % 71.3 %; PLATELET COUNT 253 K/uL (130-400); RED CELL DISTRIBUTION WIDTH CV 13.1 % (11.5-14.5); WHITE BLOOD COUNT 7.02 K/uL (4.8-10.8)
[2018-01-02 18:17] LABS: BLOOD UREA NITROGEN 11 mg/dl (7-18); CALCIUM 8.8 mg/dl (8.5-10.1); CARBON DIOXIDE 23 mmol/L (21-32); CREATININE 1.25 mg/dl (0.60-1.20); GLUCOSE 92 mg/dl (70-99); POTASSIUM 3.1 mmol/L (3.5-5.1); SODIUM 134 mmol/L (136-145)
== END | disposition home or self-care (01) ==
LOC: C.LABPVFM 14:15
PROVIDERS: ATTEND Family Medicine
DX: R11.2 Nausea with vomiting, unspecified (principal); R19.7 Diarrhea, unspecified

== ENCOUNTER 2018-01-03 11:49 | Emergency (ER) | payer OTHER ==
[~2018-01-03] VITALS: Ht 157.5 cm; Wt 58.1 kg
[~2018-01-03 11:49] MED LIST changes: -CIPR-255 PO; -PHEN-876 PO
[2018-01-03 11:56] VITALS: Ht 157.5 cm; Wt 58.1 kg
[2018-01-03] MEDS ORDERED: ONDANSETRON INJ 2 MG/ML 2 ML VIAL IV STA (12:14)
[2018-01-03] MEDS ORDERED: ALUMINUM/MAGNESIUM SUSP 30 ML UDC PO STA (12:14)
[2018-01-03] MEDS ORDERED: LIDOCAINE HCL 2% VISC SOLN 20 ML UDC PO STA (12:14)
[2018-01-03] MEDS ORDERED: SODIUM CHLORIDE 0.9% 1000ML 1,000 ML IV STA (12:14)
--- NOTE | 2018-01-03 12:39 | EMERGENCY ROOM VISIT NOTE ---
History Report prepared by Vu: Michelle Vogel Under the Supervision of: Dr. Shelby López M.D. First contact with patient: 12:11 Chief Complaint: ABDOMINAL PAIN Stated Complaint: STOMACH PAIN, VOMITING Nursing Triage Summary: Pt c/o mid abd pain for 2 weeks, severe. Unable to eat, vomiting, dehydration. Pt seen in ED yesterday for the same, given Protonix. Seen by PCP yesterday. No relief of symptoms. Pt called her doctor and was referred here. History of Present Illness The patient is a 32 year old female who presents to the Emergency Room with complaints of constant abdominal pain for two weeks. She currently rates her pain a 6/10 in severity. She notes that she cannot keep food or water down due to vomiting. She has recently lost 10 pounds. She also reports a migraine. She was seen in the ED for the migraine and was treated with protonics IV. She has taken Zantac and Maalox, though no relief. She was seen by her PCP yesterday and recommends a GI follow-up, though she has not seen a specialist. She was also recently prescribed Prilosec yesterday, though has not started the treatment. She denies any chance of . She notes a history of tubal ligation. She has taken Ibuprofen two days ago. She denies any liver problems or history of cholecystectomy. Source of History: patient Onset: two weeks Position: abdomen Symptom Intensity: 6/10 Timing: constant Associated Symptoms: + headache (migraine), + vomiting Note: She notes 10 pound weight loss. Review of Systems See HPI for pertinent positives & negatives. A total of 10 systems reviewed and were otherwise negative. Past Medical & Surgical Medical Problems: (1) Conversion disorder (2) Major depressive disorder, recurrent severe without psychotic features (3) Migraine (4) Migraines (5) Obsessive compulsive disorder (6) Panic disorder without agoraphobia (7) Posttraumatic stress disorder Family History Cancer Diabetes mellitus FHx: gallbladder disease Heart disease Hypertension Kidney disease Kidney stones Social History Smoking Status: Former Smoker Alcohol Use: none Drug Use: none Marital Status: Housing Status: lives with family Occupation Status: employed Current/Historical Medications Scheduled Clonazepam (Klonopin), 1 MG PO BID Omeprazole (Prilosec), 20 MG PO BID Ondasetron Odt (Zofran Odt), 4 MG SL Q6H Ondasetron Odt (Zofran Odt), 4 MG SL Q6H Pantoprazole (Protonix), 40 MG PO DAILY Potassium Ext Rel (Klor-Con), 20 MEQ PO DAILY Prazosin Hcl (Prazosin), 4 MG PO HS Topiramate (Topamax), 200 MG PO BID Verapamil Sust Rel (Calan Sr Ext Rel), 240 MG PO HS Vortioxetine HBr (Trintellix), 20 MG PO DAILY Scheduled PRN Ketorolac Tromethamine (Ketorolac Tromethamine), 30 MG INJ WK PRN for Headache Ranitidine (Zantac), 150 MG PO BID PRN for gastritis Allergies Coded Allergies: Lamotrigine (Verified Allergy, Severe, ANAPHYLAXIS, 01/02/18) POLLEN (Verified Allergy, Intermediate, ITCHY EYES, RUNNY NOSE, SNEEZING. , 01/02/18) Penicillins (Verified Allergy, Unknown, HIVES, 01/02/18) Codeine (Verified Adverse Reaction, Intermediate, SEVERE NAUSEA & VOMITING , 01/02/18) Physical Exam Vital Signs Date Time Temp Pulse Resp B/P (MAP) Pulse Ox O2 Delivery O2 Flow Rate FiO2 01/03/18 15:38 36.7 89 18 113/62 100 01/03/18 15:06 89 18 113/62 100 01/03/18 11:56 36.7 85 16 131/83 100 Room Air Physical Exam Vital signs reviewed. General: Well-appearing, in no significant distress. In some discomfort. HEENT: No scleral icterus, PERRLA, neck supple. Atraumatic. Cardiovascular: Regular rate and rhythm, no extra sounds. Pulmonary: Clear to auscultation bilaterally, normal work of breathing. Abdomen: Soft, diffusely tender primarily to the epigastric region, nondistended , positive bowel sounds. Musculoskeletal: Atraumatic, no peripheral edema. Neurologic: Patient awake alert and oriented x 3 Skin: Warm, dry, no rash Medical Decision & Procedures ER Provider Diagnostic Interpretation: Radiology results as stated below per my review and radiologist interpretation: PA CHEST WITH ABDOMINAL SERIES CLINICAL HISTORY: Epigastric abdominal pain. FINDINGS: A PA chest radiograph is compared to study dated 06/01/2017. The cardiomediastinal silhouette is unremarkable. The lungs and pleural spaces are clear. No pneumothorax is seen. The bony thorax is grossly intact. Supine and erect abdominal radiographs are correlated with abdominal CT dated 08/08/2017. There is a nonobstructed abdominal bowel gas pattern. No evidence of intraperitoneal free air is seen. There are small bilateral nonobstructing renal calculi. An intrauterine device is noted in the pelvis. Numerous pelvic phleboliths are observed. The lumbosacral spine and bony pelvis appear intact. IMPRESSION: 1. No active disease in the chest. 2. Nonobstructed abdominal bowel gas pattern. 3. Small bilateral nonobstructing renal calculi. Electronically signed by: Hunter Estevez M.D. 01/03/2018 1:41 PM Dictated Date/Time: 01/03/2018 1:40 PM BILIARY ULTRASOUND CLINICAL HISTORY: ] Quadrant abdominal pain COMPARISON STUDY: CT scan dated 08/08/2017 FINDINGS: The pancreas appears sonographically normal. The liver appears sonographically normal. The gallbladder appears sonographically normal. There is no ductal dilatation. The common bile duct measures 3 mm. There is no right-sided hydronephrosis. There is suspected right-sided nephrolithiasis. IMPRESSION: 1. Ultrasonographically normal liver, gallbladder, and pancreas. 2. No ductal dilatation 3. Right-sided nephrolithiasis Electronically signed by: Maninder Muhammad M.D. 01/03/2018 1:54 PM Dictated Date/Time: 01/03/2018 1:52 PM Laboratory Results 01/03/18 12:30 Red Blood Count 4.68, Mean Corpuscular Volume 88.5, Mean Corpuscular Hemoglobin 31.0, Mean Corpuscular Hemoglobin Concent 35.0, Mean Platelet Volume 10.1, Neutrophils (%) (Auto) 75.2, Lymphocytes (%) (Auto) 16.1, Monocytes (%) (Auto) 8.2, Eosinophils (%) (Auto) 0.3, Basophils (%) (Auto) 0.2, Neutrophils # (Auto) 4.84, Lymphocytes # (Auto) 1.04, Monocytes # (Auto) 0.53, Eosinophils # (Auto) 0.02, Basophils # (Auto) 0.01 01/03/18 12:30 Test 01/03/18 12:30 White Blood Count 6.44 K/uL (4.8-10.8) Red Blood Count 4.68 M/uL (4.2-5.4) Hemoglobin 14.5 g/dL (12.0-16.0) Hematocrit 41.4 % (37-47) Mean Corpuscular Volume 88.5 fL (80-100) Mean Corpuscular Hemoglobin 31.0 pg (25-34) Mean Corpuscular Hemoglobin Concent 35.0 g/dl (32-36) Platelet Count 229 K/uL (130-400) Mean Platelet Volume 10.1 fL (7.4-10.4) Neutrophils (%) (Auto) 75.2 % Lymphocytes (%) (Auto) 16.1 % Monocytes (%) (Auto) 8.2 % Eosinophils (%) (Auto) 0.3 % Basophils (%) (Auto) 0.2 % Neutrophils # (Auto) 4.84 K/uL (1.4-6.5) Lymphocytes # (Auto) 1.04 K/uL (1.2-3.4) Monocytes # (Auto) 0.53 K/uL (0.11-0.59) Eosinophils # (Auto) 0.02 K/uL (0-0.5) Basophils # (Auto) 0.01 K/uL (0-0.2) RDW Standard Deviation 42.3 fL (36.4-46.3) RDW Coefficient of Variation 13.1 % (11.5-14.5) Immature Granulocyte % (Auto) 0.0 % Immature Granulocyte # (Auto) 0.00 K/uL (0.00-0.02) Anion Gap 6.0 mmol/L (3-11) Est Creatinine Clear Calc Drug Dose 46.9 ml/min Estimated GFR () 59.6 Estimated GFR (Non- 51.5 BUN/Creatinine Ratio 7.5 (10-20) Calcium Level 9.1 mg/dl (8.5-10.1) Total Bilirubin 0.4 mg/dl (0.2-1) Direct Bilirubin 0.1 mg/dl (0-0.2) Aspartate Amino Transf (AST/SGOT) 9 U/L (15-37) Alanine Aminotransferase (ALT/SGPT) 17 U/L (12-78) Alkaline Phosphatase 61 U/L (45-117) Total Protein 7.4 gm/dl (6.4-8.2) Albumin 4.3 gm/dl (3.4-5.0) Lipase 118 U/L (73-393) Laboratory results per my review. Medications Administered Medications (Trade) Dose Ordered Sig/Matilde Route Start Time Stop Time Status Last Admin Dose Admin Lidocaine HCl (Viscous Lidocaine 2% Soln) 10 ml NOW STAT PO 01/03/18 12:14 01/03/18 12:18 DC 01/03/18 12:35 10 ML Al Hydroxide/Mg Hydroxide (Maalox Susp) 30 ml NOW STAT PO 01/03/18 12:14 01/03/18 12:18 DC 01/03/18 12:35 30 ML Ondansetron HCl (Zofran Inj) 4 mg NOW STAT IV 01/03/18 12:14 01/03/18 12:18 DC 01/03/18 12:35 4 MG Sodium Chloride 1,000 ml @ 999 mls/hr Q1H1M STAT IV 01/03/18 12:14 01/03/18 13:14 DC 01/03/18 12:34 999 MLS/HR Potassium Chloride (Klor-Con M10) 40 meq STK-MED ONCE .ROUTE 01/03/18 15:01 01/03/18 15:02 DC 01/03/18 15:04 40 MEQ ED Course 1212: Past medical records reviewed. The patient was evaluated in room B9. A complete history and physical examination was performed. 1214: Ordered Sodium Chloride 1,000 ml @ 999 mls/hr IV, Zofran 4 mg IV, Maalox 30 ml PO, and Lidocaine HCl 10 ml PO 1346: Ordered Potassium Chloride 40 meq PO 1455: I reassessed the patient at this time. She is feeling better and resting comfortably. I discussed the results and treatment plan with the patient. I answered all pertaining questions that she had. She expressed understanding and verbalized agreement. The patient will be discharged home. Medical Decision Differential diagnosis: Etiologies such as appendicitis, diverticulitis, PUD, biliary pathology, UTI, pancreatitis, obstruction, mesenteric ischemia, aortic pathology, infections, inflammatory bowel disease, renal colic, as well as others were entertained. This patient was evaluated and appeared to be in no significant distress. Physical examination reveals an epigastric abdominal tenderness. IV access was obtained and laboratory work was drawn. Patient was given a GI cocktail. She was hydrated with normal saline solution. Patient was given IV Zofran for nausea. Laboratory work is fairly unrevealing with the exception of a hypokalemia. The patient was given 40 mEq of potassium by mouth. Patient was advised on a high potassium diet. She will continue Zofran as needed for nausea. She will begin her Prilosec 20 mg daily and continue Zantac as needed. Patient was advised to avoid alcohol and NSAIDs. She will contact her physician for reevaluation and return to the ER for worsening of symptoms or any medical concerns. Medication Reconcilliation Current Medication List: was personally reviewed by me Blood Pressure Screening Patient's blood pressure: Normal blood pressure Impression Primary Impression: Epigastric abdominal pain Additional Impression: Hypokalemia Scribe Attestation The scribe's documentation has been prepared under my direction and personally reviewed by me in its entirety. I confirm that the note above accurately reflects all work, treatment, procedures, and medical decision making performed by me. Departure Information Dispostion Home / Self-Care Prescriptions Ondasetron Odt (ZOFRAN ODT) 4 Mg Tab 4 MG SL Q6H for Nausea, #14 TAB Prov: Shelby López M.D. 01/03/18 Ranitidine (Zantac) 150 Mg Tab 150 MG PO BID Y for gastritis, #60 TAB Prov: Shelby López M.D. 01/03/18 Potassium Ext Rel (Klor-Con) 20 Meq Tabcr 20 MEQ PO DAILY, #30 TAB Prov: Shelby López M.D. 01/03/18 Omeprazole (PRILOSEC) 20 Mg Capcr 20 MG PO BID, #60 CAP Prov: Shelby López M.D. 01/03/18 Referrals No Doctor, Assigned (PCP) Forms Call Back Authorization, HOME CARE DOCUMENTATION FORM, IMPORTANT VISIT INFORMATION, Work Instructions Patient Instructions My [facility] [employer] Additional Instructions Diagnosis: Epigastric abdominal pain, hypokalemia Prilosec 20 mg twice daily. Zantac 150 mg twice daily as needed. Potassium 20 MEq daily. Eat a diet high in potassium. Zofran 4 mg ODT every 6 hours as needed for nausea. Avoid aspirin, Aleve, ibuprofen. Avoid alcohol, soda. Follow-up with your primary care physician this week for reevaluation. Follow-up with gastroenterology as directed. Return to the ER for worsening of symptoms or any medical concerns. Problem Qualifiers
[2018-01-03 12:40] LABS: BASO % 0.2 %; BASO ABS # 0.01 K/uL (0-0.2); EOS % 0.3 %; EOS ABS # 0.02 K/uL (0-0.5); HEMATOCRIT 41.4 % (37-47); HEMOGLOBIN 14.5 g/dL (12.0-16.0); LYMPH % 16.1 %; LYMPH ABS # 1.04 K/uL (1.2-3.4); MEAN CELL VOLUME 88.5 fL (80-100); MEAN PLATELET VOLUME 10.1 fL (7.4-10.4); MONO % 8.2 %; MONO ABS # 0.53 K/uL (0.11-0.59); NEUT % 75.2 %; NEUT ABS # 4.84 K/uL (1.4-6.5); PLATELET COUNT 229 K/uL (130-400); RED CELL DISTRIBUTION WIDTH CV 13.1 % (11.5-14.5); RED CELL DISTRIBUTION WIDTH SD 42.3 fL (36.4-46.3); WHITE BLOOD COUNT 6.44 K/uL (4.8-10.8)
[2018-01-03 12:53] LABS: ALBUMIN 4.3 gm/dl (3.4-5.0); CALCIUM 9.1 mg/dl (8.5-10.1); CREATININE 1.35 mg/dl (0.60-1.20); POTASSIUM 2.9 mmol/L (3.5-5.1)
[2018-01-03 12:56] LABS: TOTAL PROTEIN 7.4 gm/dl (6.4-8.2)
--- NOTE | 2018-01-03 13:43 | DIAGNOSTIC IMAGING REPORT ---
PA CHEST WITH ABDOMINAL SERIES CLINICAL HISTORY: Epigastric abdominal pain. FINDINGS: A PA chest radiograph is compared to study dated 06/01/2017. The cardiomediastinal silhouette is unremarkable. The lungs and pleural spaces are clear. No pneumothorax is seen. The bony thorax is grossly intact. Supine and erect abdominal radiographs are correlated with abdominal CT dated 08/08/2017. There is a nonobstructed abdominal bowel gas pattern. No evidence of intraperitoneal free air is seen. There are small bilateral nonobstructing renal calculi. An intrauterine device is noted in the pelvis. Numerous pelvic phleboliths are observed. The lumbosacral spine and bony pelvis appear intact. IMPRESSION: 1. No active disease in the chest. 2. Nonobstructed abdominal bowel gas pattern. 3. Small bilateral nonobstructing renal calculi. Electronically signed by: Hunter Estevez M.D. 01/03/2018 1:41 PM Dictated Date/Time: 01/03/2018 1:40 PM
[2018-01-03] MEDS ORDERED: POTASSIUM CHLORIDE 10 MEQ / 100ML WTR IV STA (13:46)
[2018-01-03] MEDS ORDERED: POTASSIUM CHLORIDE 20 MEQ TABCR PO STA (13:46)
--- NOTE | 2018-01-03 13:55 | DIAGNOSTIC IMAGING REPORT ---
BILIARY ULTRASOUND CLINICAL HISTORY: ] Quadrant abdominal pain COMPARISON STUDY: CT scan dated 08/08/2017 FINDINGS: The pancreas appears sonographically normal. The liver appears sonographically normal. The gallbladder appears sonographically normal. There is no ductal dilatation. The common bile duct measures 3 mm. There is no right-sided hydronephrosis. There is suspected right-sided nephrolithiasis. IMPRESSION: 1. Ultrasonographically normal liver, gallbladder, and pancreas. 2. No ductal dilatation 3. Right-sided nephrolithiasis Electronically signed by: Maninder Muhammad M.D. 01/03/2018 1:54 PM Dictated Date/Time: 01/03/2018 1:52 PM
[2018-01-03] MEDS ORDERED: POTASSIUM CHLORIDE 10 MEQ TABCR ONE (15:01)
[2018-01-03] MEDS ORDERED: POTA20TA16 PO (15:20)
[2018-01-03] MEDS ORDERED: ZNTT/150 PO (15:20)
[2018-01-03] MEDS ORDERED: PRLSR20 PO (15:20)
[2018-01-03] MEDS ORDERED: ONDA4TAB10 SL (15:21)
[2018-01-03 15:38] VITALS: BP 113/62; PULSE 89; TEMP 36.7; O2SAT 100
== END 2018-01-03 15:30 | disposition home or self-care (01) ==
LOC: C.EDB 11:51
DX: R10.13 Epigastric pain (principal); E87.6 Hypokalemia; G43.909 Migraine, unspecified, not intractable, without status migrainosus; F41.0 Panic disorder [episodic paroxysmal anxiety]; F33.2 Major depressive disorder, recurrent severe without psychotic features; F42.9 Obsessive-compulsive disorder, unspecified; Z87.891 Personal history of nicotine dependence; Z80.9 Family history of malignant neoplasm, unspecified; Z83.3 Family history of diabetes mellitus; Z83.79 Family history of other diseases of the digestive system; Z82.49 Family history of ischemic heart disease and other diseases of the circulatory system; Z84.1 Family history of disorders of kidney and ureter

== ENCOUNTER → 2018-01-07 | Day surgery (SDC) | payer OTHER ==
[~2018-01-07] VITALS: Ht 157.5 cm; Wt 57.7 kg
[~2018-01-07] MED LIST changes: +LIDOCAINE HCL 2% 2 ML VIAL (20MG/ML) ONE; +POTA20TA16 PO; +PRLSR20 PO; +PROPOFOL IV EMULSION 10 MG/ML 20 ML VIAL IV ONE; +RANI150T85 PO
[2018-01-07 08:57] VITALS: Ht 157.5 cm; Wt 57.7 kg
--- NOTE | 2018-01-07 09:53 | Endo History and Physical ---
History & Physical Date of Service: Jan 07, 2018. Chief Complaint: epigastric pain, reflux, vomiting Referring Physician: ASTON Sepulveda History of Present Illness 32 yo CF who presents for EGD secondary to epigastric pain, GERD and Vomiting. Past Medical History Neurological Disorder, Anxiety, Reflux, Seizure Disorder, Depression Past Surgical History Hx Cardiac Surgery: No Hx Internal Defibrillator: No Hx Pacemaker: No Hx Abdominal Surgery: Yes (tubal ligation) Hx Post-Op Nausea and Vomiting: No Hx Cancer Surgery: No Hx Thoracic Surgery: No Hx Orthopedic: No Hx Urinary Tract Surgery: No Family History None Social History Smoking Status: Former Smoker Hx Substance Use: Yes Hx Alcohol Use: Yes (socially) Allergies Coded Allergies: Lamotrigine (Verified Allergy, Severe, ANAPHYLAXIS, 01/02/18) POLLEN (Verified Allergy, Intermediate, ITCHY EYES, RUNNY NOSE, SNEEZING. , 01/02/18) Penicillins (Verified Allergy, Unknown, HIVES, 01/02/18) Codeine (Verified Adverse Reaction, Intermediate, SEVERE NAUSEA & VOMITING , 01/02/18) Current Medications Reported Home Medications Medications Dose Route/Sig Max Daily Dose Days Date Category Zantac (Ranitidine HCl) 150 Mg Tab 150 Mg PO BID PRN 01/03/18 Rx Klor-Con (Potassium Chloride) 20 Meq Tabcr 20 Meq PO DAILY 01/03/18 Rx Prilosec (Omeprazole) 20 Mg Capcr 20 Mg PO BID 01/03/18 Rx Zofran Odt (Ondansetron HCl) 4 Mg Tab 4 Mg SL Q6H 08/08/17 Rx Ketorolac Tromethamine 30 Mg/Ml Inj 30 Mg INJ WK PRN 08/08/17 Reported Prazosin (Prazosin HCl) 1 Mg Cap 4 Mg PO HS 08/08/17 Reported Trintellix (Vortioxetine HBr) 20 Mg Tab 20 Mg PO DAILY 06/01/17 Reported Protonix (Pantoprazole Sodium) 40 Mg Tab 40 Mg PO DAILY 02/09/16 Reported Klonopin (Clonazepam) 1 Mg Tab 1 Mg PO BID 02/09/16 Reported Topamax (Topiramate) 50 Mg Tab 200 Mg PO BID 04/21/14 Reported Calan Sr Ext Rel (Verapamil HCl) 240 Mg Tabcr 240 Mg PO HS 11/26/13 Reported Vital Signs Weight (Kilograms): 57.72 Height (Feet): 5 Height (Inches): 2 Date Time Temp Pulse Resp B/P (MAP) Pulse Ox O2 Delivery O2 Flow Rate FiO2 01/07/18 09:17 35.9 60 18 111/67 (82) 100 Room Air Physical Exam General Appearance: WD/WN, no apparent distress Respiratory/Chest: Auscultation: breath sounds normal Cardiovascular: Heart Auscultation: RRR Abdomen: Bowel Sounds: normal Inspection & Palpation: soft, non-distended, no tenderness, guarding & rebound Assessment and Plan Assessment: 32 yo CF who presents for EGD secondary to epigastric pain, GERD and Vomiting. Plan: Proceed with EGD.
--- NOTE | 2018-01-07 10:31 | GI REPORT ---
Procedure Date: 01/07/2018 10:04 AM Procedure: Upper GI endoscopy Indications: Epigastric abdominal pain, Gastro-esophageal reflux disease Medicines: Monitored Anesthesia Care Complications: No immediate complications. Estimated Blood Loss: Estimated blood loss: none. Procedure: Pre-Anesthesia Assessment: - Prior to the procedure, a History and Physical was performed, and patient medications and allergies were reviewed. The patient's tolerance of previous anesthesia was also reviewed. The risks and benefits of the procedure and the sedation options and risks were discussed with the patient. All questions were answered, and informed consent was obtained. Prior Anticoagulants: The patient has taken no previous anticoagulant or antiplatelet agents. ASA Grade Assessment: II - A patient with mild systemic disease. After reviewing the risks and benefits, the patient was deemed in satisfactory condition to undergo the procedure. After obtaining informed consent, the endoscope was passed under direct vision. Throughout the procedure, the patient's blood pressure, pulse, and oxygen saturations were monitored continuously. The scope was introduced through the mouth, and advanced to the second part of duodenum. The upper GI endoscopy was accomplished without difficulty. The patient tolerated the procedure well. Findings: The esophagus was normal. The stomach was normal. The examined duodenum was normal. Impression: - Normal esophagus. - Normal stomach. - Normal examined duodenum. - No specimens collected. Recommendation: - Resume previous diet. - Continue present medications. - Return to primary care physician as previously scheduled. Ramo Barrett, DO 01/07/2018 10:30:50 AM This report has been signed electronically. Note Initiated On: 01/07/2018 10:04 AM I attest to the content of the Intraoperative Record and orders documented therein, exceptions below
[2018-01-07 10:53] VITALS: BP 114/78; PULSE 59; O2SAT 100
--- NOTE | 2018-01-07 10:59 | Discharge Instructions ---
Endoscopy Patient Instructions Date / Procedure(s) Performed Jan 07, 2018. EGD Allergy Information Coded Allergies: Lamotrigine (Verified Allergy, Severe, ANAPHYLAXIS, 01/02/18) POLLEN (Verified Allergy, Intermediate, ITCHY EYES, RUNNY NOSE, SNEEZING. , 01/02/18) Penicillins (Verified Allergy, Unknown, HIVES, 01/02/18) Codeine (Verified Adverse Reaction, Intermediate, SEVERE NAUSEA & VOMITING , 01/02/18) Discharge Date / Findings Jan 07, 2018. Normal EGD Medication Instructions 1) Stop Omeprazole 2) OK to resume all other medications today as prescribed Reported Home Medications Medications Dose Route/Sig Max Daily Dose Days Date Category Zantac (Ranitidine HCl) 150 Mg Tab 150 Mg PO BID PRN 01/03/18 Rx Klor-Con (Potassium Chloride) 20 Meq Tabcr 20 Meq PO DAILY 01/03/18 Rx Prilosec (Omeprazole) 20 Mg Capcr 20 Mg PO BID 01/03/18 Rx Zofran Odt (Ondansetron HCl) 4 Mg Tab 4 Mg SL Q6H 08/08/17 Rx Ketorolac Tromethamine 30 Mg/Ml Inj 30 Mg INJ WK PRN 08/08/17 Reported Prazosin (Prazosin HCl) 1 Mg Cap 4 Mg PO HS 08/08/17 Reported Trintellix (Vortioxetine HBr) 20 Mg Tab 20 Mg PO DAILY 06/01/17 Reported Protonix (Pantoprazole Sodium) 40 Mg Tab 40 Mg PO DAILY 02/09/16 Reported Klonopin (Clonazepam) 1 Mg Tab 1 Mg PO BID 02/09/16 Reported Topamax (Topiramate) 50 Mg Tab 200 Mg PO BID 04/21/14 Reported Calan Sr Ext Rel (Verapamil HCl) 240 Mg Tabcr 240 Mg PO HS 11/26/13 Reported Provider Instructions Activity Restrictions - No exercising or heavy lifting for 24 hours. - Do not drink alcohol the day of the procedure. - Do not drive a car or operate machinery until the day after the procedure. - Do not make any important decisions or sign important papers in 24 hours after the procedure. Following Day: - Return to full activity which may include returning to work/school. Diet Start your diet with liquids and light foods (jello, soup, juice, toast). Then eat your usual diet if not nauseated. Treatment For Common After Affects For mild abdominal pain, bloating, or excessive gas: - Rest - Eat lightly - Lie on right side Follow-Up Information Follow-up with ASTON Sepulveda as scheduled Anesthesia Information What You Should Know You have had a procedure that required some medicine to reduce anxiety and discomfort. This treatment is called moderate sedation. After receiving the treatment, you may be sleepy, but you will be able to breathe on your own. The effects of the treatment may last for several hours. Follow these instructions along with Activity/Diet recommendations noted above: * Do NOT do anything where dizziness or clumsiness would be dangerous. * Rest quietly at home today, then you can be up and about tomorrow. * Have a responsible person stay with you the rest of today. * You may have had an I.V. today. If so, you may take the dressing off later today. Recommendations Call your doctor if: * Trouble breathing * Continuous vomiting for more than 24 hours * Temperature above 101 degrees * Severe abdominal pain or bloating * Pain not relieved by pain medicine ordered * There is increased drainage or redness from any incision * A large amount of rectal bleeding greater than 2-3 tablespoons. (If you had a polyp/s removed or have hemorrhoids, a small amount of blood - from the rectum is to be expected.) * You have any unanswered questions or concerns. IN THE EVENT OF A SERIOUS EMERGENCY, GO TO THE NEAREST EMERGENCY ROOM Your discharge instructions were prepared by provider Ramo Barrett. Patient Instructions Signature Page Ariadna Sam Patient (or Guardian) Signature/Date: I have read and understand the instructions given to me by my caregivers. Caregiver/RN/Doctor Signature/Date: The above-named patient and/or guardian has received patient instructions on this date. + Original Patient Signature Page (only) stays with chart. Please make copy for patient.
--- NOTE | 2018-01-07 11:30 | Anesthesiology Progress Note ---
Anesthesia Post Op Note Date & Time Jan 07, 2018 at 11:29 Vital Signs Pain Intensity: 4 Vital Signs Past 12 Hours Date Time Temp Pulse Resp B/P (MAP) Pulse Ox O2 Delivery O2 Flow Rate FiO2 01/07/18 10:53 59 18 114/78 (90) 100 Room Air 01/07/18 10:35 57 18 112/75 (87) 100 Room Air 01/07/18 10:20 59 18 107/64 (78) 100 Room Air 01/07/18 09:17 35.9 60 18 111/67 (82) 100 Room Air Notes Mental Status: alert / awake / arousable, participated in evaluation Pt Amnestic to Procedure: Yes Nausea / Vomiting: adequately controlled Pain: adequately controlled Airway Patency, RR, SpO2: stable & adequate BP & HR: stable & adequate Hydration State: stable & adequate Anesthetic Complications: no major complications apparent
== END | disposition home or self-care (01) ==
LOC: C.GI 08:40
PROVIDERS: ATTEND Internal Medicine
DX: K21.9 Gastro-esophageal reflux disease without esophagitis (principal); R11.10 Vomiting, unspecified; R10.9 Unspecified abdominal pain; G40.909 Epilepsy, unspecified, not intractable, without status epilepticus; F32.9 Major depressive disorder, single episode, unspecified; Z88.8 Allergy status to other drugs, medicaments and biological substances; Z88.0 Allergy status to penicillin; Z88.5 Allergy status to narcotic agent; Z87.891 Personal history of nicotine dependence

== ENCOUNTER → 2018-02-06 | Outpatient (CLI) | payer OTHER ==
[~2018-02-06] MED LIST changes: -LIDOCAINE HCL 2% 2 ML VIAL (20MG/ML) ONE; -PROPOFOL IV EMULSION 10 MG/ML 20 ML VIAL IV ONE
== END | disposition home or self-care (01) ==
LOC: C.LABSPEC 15:32
PROVIDERS: ATTEND Physician Assistant
DX: Z30.430 Encounter for insertion of intrauterine contraceptive device (principal)

== ENCOUNTER 2018-07-17 15:24 | Emergency (ER) | payer BC, OTHER ==
[~2018-07-17] VITALS: Ht 157.5 cm; Wt 53.5 kg
[~2018-07-17 15:24] MED LIST changes: +CLON1TAB10 PO; -CLON1TAB3 PO; -ONDA4TAB10 SL; -POTA20TA16 PO; -PRLSR20 PO; -RANI150T85 PO
[2018-07-17 15:30] VITALS: Ht 157.5 cm; Wt 53.5 kg
[2018-07-17] MEDS ORDERED: SODIUM CHLORIDE 0.9% 1000ML 1,000 ML IV STA (15:57)
[2018-07-17] MEDS ORDERED: KETOROLAC TROMETHAMINE 30 MG/ML VIAL IV STA (15:57)
[2018-07-17 16:33] LABS: BASO % 0.6 %; BASO ABS # 0.03 K/uL (0-0.2); EOS % 1.3 %; EOS ABS # 0.07 K/uL (0-0.5); HEMATOCRIT 41.5 % (37-47); HEMOGLOBIN 14.5 g/dL (12.0-16.0); IG# 0.02 K/uL (0.00-0.02); LYMPH % 33.9 %; LYMPH ABS # 1.83 K/uL (1.2-3.4); MEAN CELL VOLUME 89.1 fL (80-100); MEAN CORPUSCULAR HEMOGLOBIN 31.1 pg (25-34); MEAN CORPUSCULAR HGB CONC 34.9 g/dl (32-36); MEAN PLATELET VOLUME 9.7 fL (7.4-10.4); MONO % 5.6 %; NEUT % 58.2 %; NEUT ABS # 3.15 K/uL (1.4-6.5); PLATELET COUNT 227 K/uL (130-400); RED CELL DISTRIBUTION WIDTH CV 12.8 % (11.5-14.5); RED CELL DISTRIBUTION WIDTH SD 41.1 fL (36.4-46.3)
[2018-07-17 17:01] LABS: CALCIUM 8.6 mg/dl (8.5-10.1); CREATININE 1.04 mg/dl (0.60-1.20); POTASSIUM 3.4 mmol/L (3.5-5.1)
[2018-07-17 17:15] VITALS: TEMP 36.8
--- NOTE | 2018-07-17 17:25 | DIAGNOSTIC IMAGING REPORT ---
CT HEAD WITHOUT CONTRAST (CT) CLINICAL HISTORY: Severe bilateral headache. History of left-sided migraines. COMPARISON STUDY: April 21, 2014 TECHNIQUE: Axial CT of the brain is performed from the vertex to the skull base. IV contrast was not administered for this examination. A dose lowering technique was utilized adhering to the principles of ALARA. CT DOSE: 537.48 mGy.cm FINDINGS: No intra or extra-axial mass lesions are visualized. There is no CT evidence of acute cortical infarction. There is no evidence of midline shift. There is no acute hemorrhage. No calvarial fractures are visualized. There is no evidence of pathologic ventricular dilatation. There is no evidence of acute sinusitis IMPRESSION: No acute intracranial findings Electronically signed by: Maninder Muhammad M.D. 07/17/2018 5:24 PM Dictated Date/Time: 07/17/2018 5:22 PM
[2018-07-17] MEDS ORDERED: DEXAMETHASONE SOD INJ 4 MG/ML VIAL IV STA (17:57)
[2018-07-17] MEDS ORDERED: PROCHLORPERAZINE 5 MG/ML 2 ML VIAL IV STA (17:57)
[2018-07-17] MEDS ORDERED: DiphenhydrAMINE HCL 50 MG/ML VIAL IV STA (17:57)
--- NOTE | 2018-07-17 17:57 | EMERGENCY ROOM VISIT NOTE ---
History First contact with patient: 15:40 Chief Complaint: HEADACHE Stated Complaint: BAD HEADACHE 2 WEEKS,EYE BRUISING,NECK PAIN History of Present Illness The patient is a 33 year old female who presents to the Emergency Room with complaints of headache 2 weeks. The patient reports a history of migraines for the past 6 years. She states they are typically left-sided. She had an occipital nerve release 2 years ago for her migraines and states they have been fairly well controlled since then. She states she has had her current headache for approximately 2 weeks. She took Toradol initially which seemed to help for a few days, however the headache then returned. She states that last week, she noticed that her right eye was bloodshot and there was some bruising of the eyelid. She denies any trauma to the eye. She does report significant increase in stress recently. Her headache is slightly different because it is located on both sides of the head rather than just the left side. She rates the discomfort a 5/10. It is not the worst headache of her life. She has not taken any medications other than the Toradol. She called her neurologist who recommended that she come here for a CT scan. She denies blurred vision, slurred speech, numbness, weakness, fevers or neck stiffness. Review of Systems A complete 10 point review of systems was reviewed with the patient with pertinent positives and negatives as per history of present illness. All else were negative. Past Medical/Surgical History Medical Problems: (1) Conversion disorder (2) Major depressive disorder, recurrent severe without psychotic features (3) Migraine (4) Migraines (5) Obsessive compulsive disorder (6) Panic disorder without agoraphobia (7) Posttraumatic stress disorder Family History Cancer Diabetes mellitus FHx: gallbladder disease Heart disease Hypertension Kidney disease Kidney stones Social History Smoking Status: Former Smoker Alcohol Use: none Drug Use: none Marital Status: Housing Status: lives with family Occupation Status: employed Current/Historical Medications Scheduled Topiramate (Topamax), 200 MG PO BID Verapamil Sust Rel (Calan Sr Ext Rel), 240 MG PO HS Physical Exam Vital Signs Date Time Temp Pulse Resp B/P (MAP) Pulse Ox O2 Delivery O2 Flow Rate FiO2 07/17/18 19:49 71 18 117/70 100 07/17/18 17:15 36.8 72 16 119/81 98 Room Air 07/17/18 15:30 36.8 89 17 125/81 98 Room Air Physical Exam VITALS: Vitals are noted on the nurse's note and reviewed by myself. Vital signs stable. GENERAL: This is a 33-year-old female, in no acute distress, nondiaphoretic, well-developed well-nourished. SKIN: The skin was without rashes. HEAD: Normocephalic atraumatic. EARS: External auditory canals clear, tympanic membranes pearly faith without erythema or effusion bilaterally. EYES: Pupils equal round and reactive to light and accommodation. Extraocular movements intact. MOUTH: Mucous membranes moist. Tonsils are not enlarged. Pharynx without erythema or exudate. NECK: Supple without nuchal rigidity. No lymphadenopathy. HEART: Regular rate and rhythm without murmurs gallops or rubs. LUNGS: Clear to auscultation bilaterally without wheezes, rales or rhonchi. MUSCULOSKELETAL: Strength 5/5 throughout. NEURO: Patient was alert and oriented to person place and time. No focal neurological deficits. Medical Decision & Procedures ER Provider Diagnostic Interpretation: CT HEAD WITHOUT CONTRAST (CT) CLINICAL HISTORY: Severe bilateral headache. History of left-sided migraines. COMPARISON STUDY: April 21, 2014 TECHNIQUE: Axial CT of the brain is performed from the vertex to the skull base. IV contrast was not administered for this examination. A dose lowering technique was utilized adhering to the principles of ALARA. CT DOSE: 537.48 mGy.cm FINDINGS: No intra or extra-axial mass lesions are visualized. There is no CT evidence of acute cortical infarction. There is no evidence of midline shift. There is no acute hemorrhage. No calvarial fractures are visualized. There is no evidence of pathologic ventricular dilatation. There is no evidence of acute sinusitis IMPRESSION: No acute intracranial findings Laboratory Results 07/17/18 16:10 Red Blood Count 4.66, Mean Corpuscular Volume 89.1, Mean Corpuscular Hemoglobin 31.1, Mean Corpuscular Hemoglobin Concent 34.9, Mean Platelet Volume 9.7, Neutrophils (%) (Auto) 58.2, Lymphocytes (%) (Auto) 33.9, Monocytes (%) (Auto) 5.6, Eosinophils (%) (Auto) 1.3, Basophils (%) (Auto) 0.6, Neutrophils # (Auto) 3.15, Lymphocytes # (Auto) 1.83, Monocytes # (Auto) 0.30, Eosinophils # (Auto) 0.07, Basophils # (Auto) 0.03 07/17/18 16:10 Test 07/17/18 16:10 White Blood Count 5.40 K/uL (4.8-10.8) Red Blood Count 4.66 M/uL (4.2-5.4) Hemoglobin 14.5 g/dL (12.0-16.0) Hematocrit 41.5 % (37-47) Mean Corpuscular Volume 89.1 fL (80-100) Mean Corpuscular Hemoglobin 31.1 pg (25-34) Mean Corpuscular Hemoglobin Concent 34.9 g/dl (32-36) Platelet Count 227 K/uL (130-400) Mean Platelet Volume 9.7 fL (7.4-10.4) Neutrophils (%) (Auto) 58.2 % Lymphocytes (%) (Auto) 33.9 % Monocytes (%) (Auto) 5.6 % Eosinophils (%) (Auto) 1.3 % Basophils (%) (Auto) 0.6 % Neutrophils # (Auto) 3.15 K/uL (1.4-6.5) Lymphocytes # (Auto) 1.83 K/uL (1.2-3.4) Monocytes # (Auto) 0.30 K/uL (0.11-0.59) Eosinophils # (Auto) 0.07 K/uL (0-0.5) Basophils # (Auto) 0.03 K/uL (0-0.2) RDW Standard Deviation 41.1 fL (36.4-46.3) RDW Coefficient of Variation 12.8 % (11.5-14.5) Immature Granulocyte % (Auto) 0.4 % Immature Granulocyte # (Auto) 0.02 K/uL (0.00-0.02) Anion Gap 8.0 mmol/L (3-11) Est Creatinine Clear Calc Drug Dose 60.3 ml/min Estimated GFR () 81.2 Estimated GFR (Non- 70.0 BUN/Creatinine Ratio 12.4 (10-20) Calcium Level 8.6 mg/dl (8.5-10.1) Thyroid Stimulating Hormone (TSH) 1.860 uIu/ml (0.300-4.500) Human Chorionic Gonadotropin, Qual NEG (NEG) Medications Administered Medications (Trade) Dose Ordered Sig/Matilde Route Start Time Stop Time Status Last Admin Dose Admin Sodium Chloride 1,000 ml @ 999 mls/hr Q1H1M STAT IV 07/17/18 15:57 07/17/18 16:57 DC 07/17/18 16:10 999 MLS/HR Ketorolac Tromethamine (Toradol Inj) 30 mg NOW STAT IV 07/17/18 15:57 07/17/18 16:01 DC 07/17/18 16:10 30 MG Prochlorperazine Edisylate (Compazine Inj) 10 mg NOW STAT IV 07/17/18 17:57 07/17/18 17:59 DC 07/17/18 18:09 10 MG Diphenhydramine HCl (Benadryl Inj) 25 mg NOW STAT IV 07/17/18 17:57 07/17/18 17:59 DC 07/17/18 18:09 25 MG Dexamethasone Sodium Phosphate (Decadron Inj) 10 mg NOW STAT IV 07/17/18 17:57 07/17/18 17:59 DC 07/17/18 18:09 10 MG Medical Decision The differential diagnosis includes acute intracranial bleed, meningitis, encephalitis, mass or mass effect, sinusitis, infection, tumor, headache, temporal arteritis and carbon monoxide exposure, and migraine. The patient is a 33-year-old female who presents today complaining of headache. Due to the change in the patient's normal headache pattern, CT scan was performed and read by radiology as above. This was negative for any acute findings. Labs were unremarkable. Patient was treated as above with significant improvement of her headache. She was advised to follow-up with her established neurologist for further evaluation and treatment. The patient's case was reviewed with Dr. Laughlin, ED attending physician, who agreed with my assessment and treatment plan. Based on the patient's presentation and work up, I feel the patient is stable for outpatient treatment. The patient was educated to return to the emergency department for any worsening of their current condition or new/concerning symptoms. She will follow up with her neurologist. Medication Reconcilliation Current Medication List: was personally reviewed by me Blood Pressure Screening Patient's blood pressure: Normal blood pressure Impression Primary Impression: Headache Departure Information Dispostion Home / Self-Care Condition GOOD Referrals No Doctor, Assigned (PCP) Patient Instructions [facility] Additional Instructions You have been treated in the Emergency Department for a Headache. You have received pain medicine in the emergency department which impairs your ability to operate a vehicle. It is illegal for you to drive after receiving these medicines. For pain control, you can use the following [id number] medicines (if >12 yo): - Regular strength (325mg/tab) Tylenol (acetaminophen) 2 tabs every 4-6 hours as needed. Do not exceed 12 tablets in a 24 hour period. Avoid taking more than 4 grams (4000 mg) of Tylenol per day. This includes any other sources of acetaminophen you may take on a regular basis. - Regular strength (200 mg/tab) Advil (ibuprofen) 1-2 tabs every 4-6 hours as needed. Do not exceed a dose of 3200 mg per day. You should relax in a quiet, dark place for the rest of the day. Avoid any possible triggers including: cigarette smoke, caffeine, nicotine, chocolate, wine, beer, loud noises or music, or bright lights. Contact your neurologist to let them know that you were seen here today and the results of the testing. You should ideally schedule a follow-up with them within 1 week. If you are unable to follow-up with your neurologist, you may follow-up with her primary care provider. Return to the Emergency Department if your current symptoms worsen despite treatment course outlined above, or if you develop any of the following symptoms : intractable pain despite aforementioned treatment course, visual disturbances , loss of vision, unilateral weakness or facial drooping, slurring of speech, loss of coordination, or loss of consciousness. Problem Qualifiers Primary Impression: Headache Headache type: unspecified Headache chronicity pattern: acute headache Intractability: not intractable Qualified Codes: R51 - Headache
[2018-07-17 19:49] VITALS: BP 117/70; PULSE 71; O2SAT 100
== END 2018-07-17 19:51 | disposition home or self-care (01) ==
LOC: C.EDB 15:27 → C.EDC 19:51
DX: R51 Headache (principal); Z87.891 Personal history of nicotine dependence; Z86.69 Personal history of other diseases of the nervous system and sense organs; Z79.899 Other long term (current) drug therapy

== ENCOUNTER 2022-09-01 12:42 | Inpatient (IN) ==
[2022-09-01 14:32] LABS: Basophils # (auto) 0.03 K/uL (0-0.2); Basophils % (auto) 0.4 %; Eosinophils # (auto) 0.08 K/uL (0-0.50); Hematocrit (blood only) 40.3 % (34.1-44.9); Hemoglobin 13.7 g/dl (12.0-16.0); Immature Granulocytes # (auto) 0.02 K/uL (0.00-0.02); Immature Granulocytes % (auto) 0.3 %; Lymphocytes # (auto) 2.05 K/uL (1.2-3.4); Lymphocytes % (auto) 25.9 %; Mean Corpuscular Hemoglobin 29.8 pg (25.0-34.0); Mean Corpuscular Volume 87.6 fL (80.0-100.0); Mean Platelet Volume 9.4 fL (9.4-12.3); Monocytes # (auto) 0.47 K/uL (0.24-0.82); Monocytes % (auto) 5.9 %; Neutrophils # (auto) 5.27 K/uL (1.4-6.5); Neutrophils % (auto) 66.5 %; Platelet Count 237 K/uL (130-400); RDW Coefficient of Variation 12.2 % (11.5-14.5); RDW Standard Deviation 39.3 fL (36.4-46.3); White Blood Count 7.92 K/ul (4.8-10.8)
[2022-09-01 15:05] LABS: Albumin Globulin Ratio 1.8 (0.9-2); Albumin Level 4.6 gm/dl (3.4-5.0); BUN Creatinine Ratio 11.8 (10-20); Bilirubin,Total 0.5 mg/dl (0.2-1.0); Calcium 9.4 mg/dl (8.5-10.1); Creatinine Clr Calc Pharmacy 61.4 ml/min; Est GFR (African American) 73.8 ml/min; Est GFR (Non-African American) 63.6 ml/min; Globulin 2.6 gm/dl (2.5-4.0); Total Protein 7.2 gm/dl (6.0-8.3)
[2022-09-01 15:09] LABS: Appearance Urine Turbid (Clear); Bacteria Urine Automated 1+ (Negative); Bilirubin Urine Negative (Negative); Blood Urine 3+ (Negative); Color Urine Orange; Epithelial Cell Urine Auto 20-30 /lpf (0-5); Glucose Urine UA Negative (Negative); Ketones Urine Trace (Negative); Leukocyte Esterase Urine 1+ (Negative); Nitrite Urine Positive (Negative); Protein Urine 3+ (Negative); RBC Urine Automated >30 /hpf (0-4); Specific Gravity Urine 1.022 (1.000-1.030); Urobilinogen Urine Negative (Negative)
[2022-09-01] MEDS ORDERED: MoRPHine SULFATE 4 MG/ML 1 ML CARP\\VIAL IV STA (15:24)
[2022-09-01] MEDS ORDERED: MoRPHine SULFATE 4 MG/ML 1 ML CARP\\VIAL IV PRN (15:24)
[2022-09-01] MEDS ORDERED: ONDANSETRON INJ 2 MG/ML 2 ML VIAL IV STA (15:24)
[2022-09-01] MEDS ORDERED: cefTRIAXone SODIUM 2,000 MG/70 ML BAG IV STA (15:24)
[2022-09-01] MEDS ORDERED: SODIUM CHLORIDE 0.9% 1000ML 1,000 ML IV ONE (15:24)
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
[2022-09-01] MEDS ORDERED: KETOROLAC TROMETHAMINE 15 MG/ML VIAL IV ONE (15:54)
--- NOTE | 2022-09-01 17:46 | XRay Report ---
KUB CLINICAL HISTORY: Right flank pain. Recent stent placement. COMPARISON STUDY: CT of the abdomen and pelvis August 29, 2022. KUB August 30, 2022. FINDINGS: Bilateral nephrolithiasis is again noted. Right ureteral stent is in place. A 4 mm calcific ation is adjacent to the distal right ureter. This was shown on prior exam. Additional pelvic calcifi cations represent phleboliths. No evidence for a bowel obstruction. Moderate amount of stool within t he colon and rectum is present. IMPRESSION: 1. Right ureteral stent in place. 4 mm calcification adjacent to the distal aspect of the stent. This could reflect a distal right ureteral calculus or phlebolith. 2. Bilateral nephrolithiasis. ACT 112: Negative or not required by law. Electronically signed by: Johnny García M.D. 09/01/2022 5:43 PM
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
[2022-09-01] MEDS ORDERED: DOCUSATE SODIUM 100 MG CAP PO SCH (20:46)
[2022-09-01] MEDS: MoRPHine SULFATE 2 MG/ML CARP IV PRN (21:16)
[2022-09-01] MEDS: ACETAMINOPHEN 325 MG TAB PO PRN (21:17)
[2022-09-01] MEDS: DOCUSATE SODIUM 100 MG CAP PO SCH (21:17)
[2022-09-01] MEDS: SENNOSIDES 8.8 MG/5 ML UDC PO SCH (21:45)
[2022-09-01] MEDS: PANTOprazole 40 MG in SYRINGE 0 ML IV SCH (22:35)
[2022-09-02] MEDS: KETOROLAC TROMETHAMINE 15 MG/ML VIAL IV PRN ×4 (00:22→19:34)
[2022-09-02] MEDS ORDERED: OXYBUTYNIN CHLORIDE 5 MG TAB PO STA (00:40)
[2022-09-02] MEDS: MoRPHine SULFATE 2 MG/ML CARP IV PRN ×4 (05:57→21:22)
[2022-09-02 07:31] LABS: Hematocrit (blood only) 36.4 % (34.1-44.9); Hemoglobin 12.3 g/dl (12.0-16.0); Mean Corpuscular Hemoglobin 29.9 pg (25.0-34.0); Mean Corpuscular Hgb Conc 33.8 g/dL (32.0-36.0); Mean Corpuscular Volume 88.6 fL (80.0-100.0); Mean Platelet Volume 9.6 fL (9.4-12.3); Platelet Count 201 K/uL (130-400); RDW Standard Deviation 38.9 fL (36.4-46.3); Red Blood Count 4.11 M/uL (3.93-5.22); White Blood Count 4.87 K/ul (4.8-10.8)
[2022-09-02 08:07] LABS: BUN Creatinine Ratio 13.5 (10-20); Calcium 8.7 mg/dl (8.5-10.1); Creatinine Clr Calc Pharmacy 78.6 ml/min; Est GFR (African American) 95.3 ml/min; Est GFR (Non-African American) 82.2 ml/min; Potassium 3.7 mmol/L (3.5-5.1)
--- NOTE | 2022-09-02 08:52 | Urology Progress Note ---
Date of Service September 02, 2022 Assessment & Plan (1) Constipation: (2) Right distal ureteral calculus: Plan 37-year-old female with right distal ureteral calculi status post ureteral stent placement who was admitted to the hospital due to stent colic there was unable to be controlled at home. No acute urologic intervention at this time. Will plan on keeping surgery date on 09/05 For stent colic, recommend alternating Tylenol and Toradol. Flomax daily. Ditropan 3 times daily as needed. Recommend aggressive bowel regiment as patient is significantly constipated and this is likely contributing to her discomfort Continue antibiotics and follow-up culture Urology will continue to follow while patient is hospitalized Admission and Anticipated Discharge Date Admission Date: September 01, 2022 Subjective Afebrile with stable vitals. Labs stable today outside of some hyponatremia. Urine culture pending. Mild discomfort with voiding today but otherwise feels much better than yesterday. Was able to get some sleep overnight. Yet to pass flatus or have a bowel movement. Review of Systems Review of Systems: 14 point review of systems negative outside of what is listed above in HPI Physical Exam Physical Exam: General: Alert and oriented, no acute distress HEENT: Normocephalic, mucous membranes moist Pulmonary: Nonlabored respirations Abdomen: Nondistended Extremities: Moves all 4 spontaneously Neuro: No gross deficits Skin: Warm, dry, no rashes noted Results & Data ([facility]) Vital Signs (Past 12 Hours) Vital Signs Temp Pulse Resp BP Pulse Ox O2 Del Method 09/02/22 07:30 37.0 C 66 18 102/67 97 Room Air 09/01/22 21:00 Room Air PG Care Time/CCT Total # of Minutes Spent Total Time Spent with Patient: Total time spent is greater than 50% in coordination of care (as documented) at patient's floor/unit and/or counseling patient: Coding Level of Care Code 49603 Subseq Hosp Care Lvl 2 Diagnoses Constipation K59.00 Right distal ureteral calculus N20.1
[2022-09-02] MEDS: OXYBUTYNIN CHLORIDE XL 5 MG TABCR PO SCH (09:22)
[2022-09-02] MEDS: MULTIVITAMIN TAB PO SCH (09:22)
[2022-09-02] MEDS: DOCUSATE SODIUM 100 MG CAP PO SCH ×2 (09:22→21:21)
[2022-09-02] MEDS: TAMSULOSIN HCL 0.4 MG CAP PO SCH (09:22)
[2022-09-02] MEDS: PANTOprazole 40 MG in SYRINGE 0 ML IV SCH ×2 (09:23→21:21)
[2022-09-02] MEDS: SENNOSIDES 8.8 MG/5 ML UDC PO SCH (09:23)
[2022-09-02] MEDS: POLYETHYLENE (MIRALAX) 17 GM PACK PO SCH (09:23)
[2022-09-02] MEDS: ACETAMINOPHEN 325 MG TAB PO PRN ×2 (12:33→21:21)
[2022-09-02] MEDS ORDERED: ONDANSETRON INJ 2 MG/ML 2 ML VIAL IV STA (13:37)
[2022-09-02] MEDS: cefTRIAXone SODIUM 2,000 MG in DEXTROSE 5% 50 ML IV SCH (15:38)
[2022-09-02 16:18] LABS: Anion Gap 6.5 (3-11)
[2022-09-02 19:01] LABS: Anion Gap 6.2 (3-11)
--- NOTE | 2022-09-02 21:12 | Hospitalist Progress Note ---
Date of Service September 02, 2022 Assessment & Plan (1) Pain due to ureteral stent: Plan: -Admit to med/surge -Patient is currently afebrile, hemodynamically stable, and stable on RA -Patient has had continued issues with pain control since her stent placement -Spoke to Urology who recommended admission for better pain control, they will follow, they would not take the stent out at this point -Pain is currently well-controlled on toradol and morphine, will continue with both for now -Still having CVA tenderness and Dysuria on Ciprofloxacin, UA showing nitrite + and 1+ leukocyte esterase with 10-30 WBC and 1+ bacteria >Most recent urine cultures from this week are growing gram positive bacilli and lactobacillus species, repeat urine culture in process -Given one dose of ceftriaxone in the ED, will continue with ceftriaxone for now as her symptoms have not resolved on Cipro -Follow urine culture and tailor abx as able -Urology consult placed -plan for stent removal later in the week, will maintain atient in the hospital day before procedure. (2) Constipation: Plan: -Patient has not had a BM in over a week, still passing gas -Has a history of chronic constipation, likely exacerbated from pain and recent opioid use -Will start heavy oral bowel regimen including colace, senna, and miralax -May need to escalate to suppository or enema if no success (3) Posttraumatic stress disorder: Plan: -Not currently on medication (4) Major depressive disorder, recurrent severe without psychotic features: Plan: -Not currently on medication (5) Panic disorder without agoraphobia: Plan: -Not currently on medication (6) Obsessive compulsive disorder: Plan: -Not currently on medication (7) Esophageal reflux: Plan: -Will put her on BID pantoprazole for now while on toradol to prevent ulcer formation Admission and Anticipated Discharge Date Admission Date: September 01, 2022 Subjective Patient reports her pain has been controlled. Patient has no new symptoms. Review of Systems Review of Systems: All systems reviewed & are unremarkable except as noted in HPI & below Physical Exam Physical Exam: General:In no acute distress, stated age, well- nourished, good hygiene HEENT:Normocephalic, atraumatic, no scleral icterus, pupils around round, symmetrical, and reactive to light, moist mucus membranes, trachea midline, no thyromegaly Chest/Pulm:No respiratory distress, symmetrical chest expansion, clear breath sounds throughout Cardiac:RRR, no murmurs noted Abdomen:Negative for ascites and bruising, normoactive bowel sounds, soft, tender to palpation in the right upper/lower abdomen and suprapubic region :+ right CVA tenderness Musculoskeletal:Symmetrical and without signs of acute trauma, upper and lower extremities with full ROM, no atrophy, spasticity, or flaccidity Extremities:Radial, dorsalis pedis, and posterior tibial pulses are intact and symmetrical, no edema noted in the BL LE's Skin:Warm, dry, no rashes , lesions, or scars noted Neuro:Alert and oriented to person, place, month, year, and president, no focal defects, CN II-XII tested and intact, finger to nose test negative, no tremors noted Psych:No acute distress, calm and cooperative during the exam Results & Data Results & Data ([facility]) Vital Signs (Past 12 Hours) Vital Signs Temp Pulse Resp BP Pulse Ox O2 Del Method 09/02/22 19:45 Room Air 09/02/22 15:49 36.7 C 65 16 111/73 97 Room Air PG Care Time/CCT Total # of Minutes Spent Total Time Spent with Patient: Total time spent is greater than 50% in coordination of care (as documented) at patient's floor/unit and/or counseling patient: Coding Level of Care Code 19978 Subseq Hosp Care Lvl 3 Diagnoses Pain due to ureteral stent T83.84XA Constipation K59.00 Posttraumatic stress disorder F43.10 Major depressive disorder, recurrent severe without psychotic features F33.2 Panic disorder without agoraphobia F41.0 Obsessive compulsive disorder F42.9 Esophageal reflux K21.9
[2022-09-02] MEDS: MELATONIN 3 MG TAB PO PRN (23:27)
--- NOTE | 2022-09-03 07:40 | Urology Progress Note ---
Date of Service September 03, 2022 Assessment & Plan (1) Constipation: (2) Right distal ureteral calculus: Plan 37-year-old female with right distal ureteral calculi status post ureteral stent placement who was admitted to the hospital due to stent colic there was unable to be controlled at home. No acute urologic intervention at this time. Will plan on keeping surgery date on 09/05 For stent colic, recommend alternating Tylenol and Toradol. Flomax daily. Ditropan 3 times daily as needed. Recommend aggressive bowel regiment as patient is significantly constipated and this is likely contributing to her discomfort. Suggest maybe adding milk of magnesia or magnesium citrate. Culture is returning negative. Not unreasonable to have today be the last dose of antibiotics. Urology will continue to follow while patient is hospitalized Admission and Anticipated Discharge Date Admission Date: September 01, 2022 Subjective No acute issues overnight. Afebrile with stable vitals. Patient reported that she slept through the night without needing pain medications. Yet to have a bowel movement or pass gas. Review of Systems Review of Systems: 14 point review of systems negative outside of what is listed above in HPI Physical Exam Physical Exam: General: Alert and oriented, no acute distress HEENT: Normocephalic, mucous membranes moist Pulmonary: Nonlabored respirations Abdomen: Nondistended Extremities: Moves all 4 spontaneously Neuro: No gross deficits Skin: Warm, dry, no rashes noted Results & Data ([facility]) Vital Signs (Past 12 Hours) Vital Signs Temp Pulse Resp BP Pulse Ox O2 Del Method 09/02/22 22:42 36.5 C 72 18 97/59 L 99 Room Air 09/02/22 19:45 Room Air PG Care Time/CCT Total # of Minutes Spent Total Time Spent with Patient: Total time spent is greater than 50% in coordination of care (as documented) at patient's floor/unit and/or counseling patient: Coding Level of Care Code 67821 Subseq Hosp Care Lvl 2 Diagnoses Constipation K59.00 Right distal ureteral calculus N20.1
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
[2022-09-03] MEDS: TAMSULOSIN HCL 0.4 MG CAP PO SCH (07:45)
[2022-09-03] MEDS: PANTOprazole 40 MG in SYRINGE 0 ML IV SCH ×2 (07:46→20:34)
[2022-09-03] MEDS: OXYBUTYNIN CHLORIDE XL 5 MG TABCR PO SCH (07:46)
[2022-09-03] MEDS: DOCUSATE SODIUM 100 MG CAP PO SCH ×2 (07:46→20:33)
[2022-09-03] MEDS: MULTIVITAMIN TAB PO SCH (07:46)
[2022-09-03] MEDS: SENNOSIDES 8.8 MG/5 ML UDC PO SCH (07:47)
[2022-09-03] MEDS: POLYETHYLENE (MIRALAX) 17 GM PACK PO SCH (07:47)
[2022-09-03] MEDS: KETOROLAC TROMETHAMINE 15 MG/ML VIAL IV PRN (07:51)
[2022-09-03 09:50] LABS: Hematocrit (blood only) 36.8 % (34.1-44.9); Hemoglobin 12.9 g/dl (12.0-16.0); Mean Corpuscular Hemoglobin 30.1 pg (25.0-34.0); Mean Corpuscular Hgb Conc 35.1 g/dL (32.0-36.0); Mean Platelet Volume 9.7 fL (9.4-12.3); Platelet Count 229 K/uL (130-400); RDW Standard Deviation 37.7 fL (36.4-46.3); Red Blood Count 4.28 M/uL (3.93-5.22); White Blood Count 5.16 K/ul (4.8-10.8)
[2022-09-03 10:14] LABS: BUN Creatinine Ratio 16.9 (10-20); Calcium 9.1 mg/dl (8.5-10.1); Creatinine Clr Calc Pharmacy 78.6 ml/min; Est GFR (African American) 95.3 ml/min; Est GFR (Non-African American) 82.2 ml/min; Potassium 3.8 mmol/L (3.5-5.1)
[2022-09-03] MEDS ORDERED: POLYETHYLENE (MIRALAX) 17 GM PACK PO ONE (13:15)
[2022-09-03] MEDS ORDERED: SENNA 8.6 MG TAB PO ONE (13:15)
[2022-09-03] MEDS: ACETAMINOPHEN 325 MG TAB PO SCH ×3 (13:54→20:33)
[2022-09-03] MEDS: MoRPHine SULFATE 2 MG/ML CARP IV PRN (13:55)
[2022-09-03] MEDS: cefTRIAXone SODIUM 2,000 MG in DEXTROSE 5% 50 ML IV SCH (16:10)
[2022-09-03] MEDS ORDERED: HEPARIN SOD 5,000 UNIT/0.5 ML VIAL SQ STA (22:16)
--- NOTE | 2022-09-03 22:16 | Hospitalist Progress Note ---
Date of Service September 03, 2022 Assessment & Plan (1) Pain due to ureteral stent: Plan: -Admit to med/surge -Patient is currently afebrile, hemodynamically stable, and stable on RA -Patient has had continued issues with pain control since her stent placement -Spoke to Urology who recommended admission for better pain control, they will follow, they would not take the stent out at this point -Pain is currently well-controlled on toradol and morphine, will continue with both for now -Still having CVA tenderness and Dysuria on Ciprofloxacin, UA showing nitrite + and 1+ leukocyte esterase with 10-30 WBC and 1+ bacteria >Most recent urine cultures from this week are growing gram positive bacilli and lactobacillus species, repeat urine culture in process -Given one dose of ceftriaxone in the ED, will continue with ceftriaxone for now as her symptoms have not resolved on Cipro -Follow urine culture and tailor abx as able -Urology consult placed -plan for stent removal later in the week, will maintain atient in the hospital day before procedure. Plan for discharge on 09/04 (2) Constipation: Plan: -Patient has not had a BM in over a week, still passing gas -Has a history of chronic constipation, likely exacerbated from pain and recent opioid use -Will start heavy oral bowel regimen including colace, senna, and miralax increased dose of senna and miralax. -May need to escalate to suppository or enema if no success (3) Posttraumatic stress disorder: Plan: -Not currently on medication (4) Major depressive disorder, recurrent severe without psychotic features: Plan: -Not currently on medication (5) Panic disorder without agoraphobia: Plan: -Not currently on medication (6) Obsessive compulsive disorder: Plan: -Not currently on medication (7) Esophageal reflux: Plan: -Will put her on BID pantoprazole for now while on toradol to prevent ulcer formation Admission and Anticipated Discharge Date Admission Date: September 01, 2022 Subjective Patient reports being constpated. No BM over past few days, Review of Systems Review of Systems: All systems reviewed & are unremarkable except as noted in HPI & below Physical Exam Physical Exam: General:In no acute distress, stated age, well- nourished, good hygiene HEENT:Normocephalic, atraumatic, no scleral icterus, pupils around round, symmetrical, and reactive to light, moist mucus membranes, trachea midline, no thyromegaly Chest/Pulm:No respiratory distress, symmetrical chest expansion, clear breath sounds throughout Cardiac:RRR, no murmurs noted Abdomen:Negative for ascites and bruising, normoactive bowel sounds, soft, tender to palpation in the right upper/lower abdomen and suprapubic region :+ right CVA tenderness Musculoskeletal:Symmetrical and without signs of acute trauma, upper and lower extremities with full ROM, no atrophy, spasticity, or flaccidity Extremities:Radial, dorsalis pedis, and posterior tibial pulses are intact and symmetrical, no edema noted in the BL LE's Skin:Warm, dry, no rashes , lesions, or scars noted Neuro:Alert and oriented to person, place, month, year, and president, no focal defects, CN II-XII tested and intact, finger to nose test negative, no tremors noted Psych:No acute distress, calm and cooperative during the exam Results & Data Results & Data ([facility]) Vital Signs (Past 12 Hours) Vital Signs Temp Pulse Resp BP Pulse Ox O2 Del Method 09/03/22 21:49 36.8 C 65 14 113/73 97 Room Air 09/03/22 15:13 36.5 C 84 14 123/85 98 Room Air PG Care Time/CCT Total # of Minutes Spent Total Time Spent with Patient: Total time spent is greater than 50% in coordination of care (as documented) at patient's floor/unit and/or counseling patient: Coding Level of Care Code 72397 Subseq Hosp Care Lvl 2 Diagnoses Pain due to ureteral stent T83.84XA Constipation K59.00 Posttraumatic stress disorder F43.10 Major depressive disorder, recurrent severe without psychotic features F33.2 Panic disorder without agoraphobia F41.0 Obsessive compulsive disorder F42.9 Esophageal reflux K21.9 Time Spent (min) 25
[2022-09-03] MEDS: MELATONIN 3 MG TAB PO PRN (22:53)
--- NOTE | 2022-09-04 00:35 | Communication Note ---
Date of Service: September 04, 2022 Notified by nursing that patient complaining of bladder spasms and foreign body sensation. On exam, patient resting comfortably in bed in left lateral recumbent position. Unlabored respirations. External genital exam performed with no foreign body identified; no pelvic organ prolapse noted with valsalva maneuver. Normal female external genitalia. Chart reviewed including notes from patient's urology team. Ditropan TID prn ordered for patient with one dose to be given now. Also requested that RN give a dose of the Toradol prn as ordered.
[2022-09-04] MEDS: KETOROLAC TROMETHAMINE 15 MG/ML VIAL IV PRN ×3 (01:08→18:36)
[2022-09-04] MEDS: OXYBUTYNIN CHLORIDE 5 MG TAB PO PRN ×2 (01:09→18:05)
[2022-09-04 06:15] LABS: Hematocrit (blood only) 36.7 % (34.1-44.9); Hemoglobin 12.9 g/dl (12.0-16.0); Mean Corpuscular Hemoglobin 30.3 pg (25.0-34.0); Mean Corpuscular Hgb Conc 35.1 g/dL (32.0-36.0); Mean Corpuscular Volume 86.2 fL (80.0-100.0); Mean Platelet Volume 9.8 fL (9.4-12.3); Platelet Count 243 K/uL (130-400); RDW Standard Deviation 38.1 fL (36.4-46.3); Red Blood Count 4.26 M/uL (3.93-5.22); White Blood Count 5.74 K/ul (4.8-10.8)
[2022-09-04 06:49] LABS: BUN Creatinine Ratio 22.4 (10-20); Calcium 9.1 mg/dl (8.5-10.1); Creatinine Clr Calc Pharmacy 82.3 ml/min; Est GFR (African American) 100.7 ml/min; Est GFR (Non-African American) 86.9 ml/min; Potassium 3.7 mmol/L (3.5-5.1)
--- NOTE | 2022-09-04 07:15 | Urology Progress Note ---
Date of Service September 04, 2022 Assessment & Plan (1) Constipation: (2) Right ureteral calculus: Plan 37-year-old female with right distal ureteral calculi status post ureteral stent placement who was admitted to the hospital due to stent colic there was unable to be controlled at home. No acute urologic intervention at this time. Will plan on keeping surgery date on 09/05 For stent colic, recommend alternating Tylenol and Toradol. Flomax daily. Ditropan 3 times daily as needed. Recommend aggressive bowel regiment as patient is significantly constipated and this is likely contributing to her discomfort. Suggest maybe adding milk of magnesia or magnesium citrate. Culture is returning negative. Not unreasonable to have today be the last dose of antibiotics. Recommend discharge this afternoon so patient can make it to procedure tomorrow at the surgery center Admission and Anticipated Discharge Date Admission Date: September 01, 2022 Subjective No acute issues overnight. Did have some bladder spasms relieved with Ditropan. Still yet to have a bowel movement. Afebrile with stable vitals. Review of Systems Review of Systems: 14 point review of systems negative outside of what is listed above in HPI Physical Exam Physical Exam: General: Alert and oriented, no acute distress HEENT: Normocephalic, mucous membranes moist Pulmonary: Nonlabored respirations Abdomen: Nondistended Extremities: Moves all 4 spontaneously Neuro: No gross deficits Skin: Warm, dry, no rashes noted Results & Data ([facility]) Vital Signs (Past 12 Hours) Vital Signs Temp Pulse Resp BP Pulse Ox O2 Del Method 09/03/22 21:00 Room Air 09/03/22 21:49 36.8 C 65 14 113/73 97 Room Air PG Care Time/CCT Total # of Minutes Spent Total Time Spent with Patient: Total time spent is greater than 50% in coordination of care (as documented) at patient's floor/unit and/or counseling patient: Coding Level of Care Code 37767 Subseq Hosp Care Lvl 2 Diagnoses Constipation K59.00 Right ureteral calculus N20.1
[2022-09-04] MEDS: POLYETHYLENE (MIRALAX) 17 GM PACK PO SCH (08:01)
[2022-09-04] MEDS: TAMSULOSIN HCL 0.4 MG CAP PO SCH (08:02)
[2022-09-04] MEDS: OXYBUTYNIN CHLORIDE XL 5 MG TABCR PO SCH (08:02)
[2022-09-04] MEDS: DOCUSATE SODIUM 100 MG CAP PO SCH (08:02)
[2022-09-04] MEDS: MULTIVITAMIN TAB PO SCH (08:03)
[2022-09-04] MEDS: PANTOprazole 40 MG in SYRINGE 0 ML IV SCH (08:03)
[2022-09-04] MEDS: ACETAMINOPHEN 325 MG TAB PO SCH ×3 (08:03→18:05)
[2022-09-04] MEDS ORDERED: SENNA 8.6 MG TAB PO SCH (09:00)
[2022-09-04] MEDS ORDERED: HEPARIN SOD 5,000 UNIT/0.5 ML VIAL SQ SCH (09:00)
[2022-09-04] MEDS: cefTRIAXone SODIUM 2,000 MG in DEXTROSE 5% 50 ML IV SCH (16:55)
--- NOTE | 2022-09-10 17:46 | Discharge Summary ---
Date of Service September 04, 2022 Admission HPI Per Admitting Provider Gracy is a 37 year old female with a PMH significant for PTSD, OCD, panic disorder, depression, GERD, seizure disorder, migraines, and S/P Cystoscopy, Retrograde Pyelogram with radiographic interpretation, Right Ureteral Stent Insertion(Right) with Dr. Buitrago on 08/29/22 who presents to the [facility] ED on 09/01/22 for uncontrolled flank pain. In the ED the patient was found to be afebrile, hemodynamically stable, and stable on room air. Labs were remarkable for a sodium of 131, stable renal function, no leukocytosis. KUB shows "Right ureteral stent in place. 4 mm calcification adjacent to the distal aspect of the stent. This could reflect a distal right ureteral calculus or phlebolith.Bilateral nephrolithiasis.". In the Ed the patient was given toradol, morphine, ceftriaxone, and 1L NSS bolus. At the time of the exam the patient was resting in bed in no acute distress. She states that the Toradol and morphine she has received so far has significantly improved the pain. She states that since discharge on 08/29 she has had to come back to the ED once, the discharged her on Percocet and oxycodone but they were ineffective. The patient states that she continues to have severe pain starting in her right flank, moving around her right side, and into her right groin/suprapubic region. She has continued taking the Cipro she was prescribed initially for her UTI last week and has not had recent fevers. She has had nausea but denies vomiting. She notes that she has not had a bowel movement in over a week but is still passing gas. She notes continued dysuria and hematuria but denies any other issues. Principal Diagnosis pain due to ureteral stent Discharge Exam General:In no acute distress, stated age, well-nourished, good hygiene HEENT:Normocephalic, atraumatic, no scleral icterus, pupils around round, symmetrical, and reactive to light, moist mucus membranes, trachea midline, no thyromegaly Chest/Pulm:No respiratory distress, symmetrical chest expansion, clear breath sounds throughout Cardiac:RRR, no murmurs noted Abdomen:Negative for ascites and bruising, normoactive bowel sounds, soft, tender to palpation in the right upper/lower abdomen and suprapubic region :+ right CVA tenderness Musculoskeletal:Symmetrical and without signs of acute trauma, upper and lower extremities with full ROM, no atrophy, spasticity, or flaccidity Extremities:Radial, dorsalis pedis, and posterior tibial pulses are intact and symmetrical, no edema noted in the BL LE's Skin:Warm, dry, no rashes , lesions, or scars noted Neuro:Alert and oriented to person, place, month, year, and president, no focal defects, CN II-XII tested and intact, finger to nose test negative, no tremors noted Psych:No acute distress, calm and cooperative during the exam Discharge Data Allergies Allergy/AdvReac Type Severity Reaction Status Date / Time lamotrigine Allergy Severe ANAPHYLAXIS Verified 09/05/22 08:25 amoxicillin Allergy Intermediate hives Verified 09/05/22 08:25 Penicillins Allergy Intermediate HIVES Verified 09/05/22 08:25 pollen extracts Allergy Intermediate ITCHY Verified 09/05/22 08:25 EYES, RUNNY NOSE, SNEEZING. doxycycline AdvReac Intermediate Gastrointestinal Verified 09/05/22 08:25 Upset Consultations 09/01/22 17:35 ED Decision to Admit Stat 09/01/22 19:19 Consult Urology Routine Hospital Course (1) Pain due to ureteral stent: -Admit to med/surge -Patient is currently afebrile, hemodynamically stable, and stable on RA -Patient has had continued issues with pain control since her stent placement -Spoke to Urology who recommended admission for better pain control, they will follow, they would not take the stent out at this point -Pain is currently well-controlled on toradol and morphine, will continue with both for now -Still having CVA tenderness and Dysuria on Ciprofloxacin, UA showing nitrite + and 1+ leukocyte esterase with 10-30 WBC and 1+ bacteria >Most recent urine cultures from this week are growing gram positive bacilli and lactobacillus species, repeat urine culture in process -Given one dose of ceftriaxone in the ED, will continue with ceftriaxone for now as her symptoms have not resolved on Cipro -Follow urine culture and tailor abx as able -Urology consult placed -plan to discharge for ureteral stent removal on 09/05 -will defer further antibiotics to Urology. (2) Constipation: -Patient has not had a BM in over a week, still passing gas -Has a history of chronic constipation, likely exacerbated from pain and recent opioid use -Will start heavy oral bowel regimen including colace, senna, and miralax -recommended to continue miralax at home until BM normalize. (3) Posttraumatic stress disorder: -Not currently on medication (4) Major depressive disorder, recurrent severe without psychotic features: -Not currently on medication (5) Panic disorder without agoraphobia: -Not currently on medication (6) Obsessive compulsive disorder: -Not currently on medication (7) Esophageal reflux: treated with BID pantoprazole during hospital stay while on toradol to prevent ulcer formation Total Time Total Time Spent Total Time Spent (In Minutes): 35 Discharge Plan Discharge Items Patient Disposition: Home - Self-Care Reason For Visit: FLANK PAIN Discharge Diagnosis: flank pain Activity: Resume your previous activity Non-emergency contact: Primary Care Provider Call non-emergency contact if: you have any medication questions Follow-up/Referrals: Fior Hicks MD [Primary Care Provider] - 09/12/22 11:30 am Diet: Regular Addtl Attending Provider Instructions: followup with Urology tomorrow. Pending Studies at Discharge: No Stand-Alone Forms: My [facility] CÜR, Smoking Cessation Medications and DC Order Prescriptions: New acetaminophen 325 mg Tablet 650 mg PO QID Qty: 10 0RF polyethylene glycol 3350 [Miralax] 17 gram Powder In Packet 17 g PO DAILY Qty: 14 0RF sennosides [Senokot] 8.6 mg Tablet 17.2 mg PO DAILY Qty: 10 0RF oxybutynin chloride 5 mg Tablet 5 mg PO TID PRN (Reason: bladder spasms) Qty: 7 0RF Continued multivitamin Tablet 1 tab PO QAM docusate sodium [Col-Rite] 100 mg capsule 100 mg PO BID Qty: 20 0RF oxycodone 5 mg tablet 5 mg PO Q6H PRN (Reason: pain) Qty: 8 0RF Discontinued ciprofloxacin HCl [Cipro] 500 mg tablet 500 mg PO BID Qty: 14 0RF Rx Instructions: STARTED 08/27/22 FOR 7 DAYS. phenazopyridine [Pyridium] 200 mg tablet 200 mg PO TID Qty: 9 0RF oxycodone-acetaminophen [Percocet] 5-325 mg tablet 2 tab PO Q6H PRN (Reason: pain) Qty: 20 0RF Rx Instructions: Initial Treatment No Action prednisone 10 mg tablet 10 mg PO DAILY Qty: 3 0RF sulfamethoxazole-trimethoprim [Bactrim DS] 800-160 mg tablet 1 tab PO BID Qty: 6 0RF Discharge Orders: Discharge Order (Routine); Ordered 09/04/22 Ordered By: Wei Mccartney Admission Data Admit Date/Time: 09/01/22 18:33 Attending Provider: Wei Mccartney Admit Provider: Wei Mccartney Primary Care Provider: Fior Hicks Other Providers: Wei Mccartney ; Lance Molina ; Thomas Mares ; Nathan Foreman ; Meche Zimmerman ; Moshe Coburn ; Aleshia Su ; Deja Mendez ; Nguyễn Nation ; Opal Schroeder ; Gracy Mayers ; Jamir Storm ; Arjun Buitrago Other Interventions: Discharge Summary Assessment (RN) Last Done: 09/04/22 17:31 Coding Level of Care Code D/C DAY MANAGEMENT >30 MINS Diagnoses Pain due to ureteral stent T83.84XA Constipation K59.00 Posttraumatic stress disorder F43.10 Major depressive disorder, recurrent severe without psychotic features F33.2 Panic disorder without agoraphobia F41.0 Obsessive compulsive disorder F42.9 Esophageal reflux K21.9
== END 2022-09-04 18:51 | disposition home or self-care (01) | DRG 699 ==
LOC: ED 12:42 → 3W 18:33